=== PATIENT | male | born 1955 | race Caucasian/White ===

== ENCOUNTER 2016-09-14 09:17 | Inpatient (IN) | payer SELFPAY ==
[2016-09-14] MEDS ORDERED: IPRATROPIUM/ALBUTEROL 0.5-2.5 MG/3 ML AMPUL NEB ONE (10:37)
--- NOTE | 2016-09-14 10:37 | ER Document Report ---
ED Respiratory Problem - General Chief Complaint: Cough Stated Complaint: DIFFICULTY BREATHING Mode of Arrival: Ambulatory Information source: Patient Notes: Patient reports chronic cough due to COPD that worsened over the past 5 days. Patient does report multiple sick contacts recently. Patient denies any recent travel, history of DVT or PE. Patient denies any nausea or vomiting. Patient does report some mild chest discomfort that he attributes to the coughing. TRAVEL OUTSIDE OF THE [place] IN LAST 30 DAYS: No - HPI Patient complains to provider of: Cough, Short of breath Onset: Other - 5 days Duration: Continuous Quality of pain: Other - Occasional tightness Pain Level: 1 Context: Hx COPD. denies: Recent cardiac event, Recent foreign travel, Recent long distance trvl, Recent immobilization, Recent surgery, Smoker Chest pain/discomfort: Tightness Cough: Productive Sputum amount: Small Sputum color: Red (blood) Associated symptoms: Bloody cough, Chest pain/discomfort - With coughing, Cough , Fever - Possible, Short of breath - With ambulation. denies: Toothache, Wheezing Similar symptoms previously: No Recently seen / treated by doctor: No - Related Data Allergies/Adverse Reactions: No Known Allergies Allergy (Verified 09/14/16 09:23) Home Medications: Current Home Medications Albuterol Sulfate [Ventolin HFA MDI 18 GM] 2 puff IH Q4HP PRN 09/14/16 [History] Hydrochlorothiazide [Hydrodiuril 25 mg Tablet] 25 mg PO QAM 09/14/16 [History] Lisinopril [Prinivil 40 mg Tablet] 40 mg PO Q12 09/14/16 [History] Metoprolol Tartrate [Lopressor 50 mg Tablet] 50 mg PO Q12 09/14/16 [History] Past Medical History - General Information source: Patient - Social History Smoking Status: Former Smoker Chew tobacco use (# tins/day): No Frequency of alcohol use: None Drug Abuse: None Occupation: parking lot painting Lives with: Spouse/Significant other Family History: Reviewed & Not Pertinent Patient has suicidal ideation: No Patient has homicidal ideation: No - Past Medical History Cardiac Medical History: Reports: Hx Hypertension Pulmonary Medical History: Reports: Hx COPD Renal/ Medical History: Denies: Hx Peritoneal Dialysis Surgical Hx: Negative Review of Systems - Review of Systems Constitutional: Fever - Possible EENT: No symptoms reported Cardiovascular: Chest pain - With coughing, Dyspnea Respiratory: Cough, Hemoptysis, Short of breath, Sputum Gastrointestinal: No symptoms reported. denies: Nausea, Vomiting Genitourinary: No symptoms reported. denies: Dysuria Male Genitourinary: No symptoms reported Musculoskeletal: No symptoms reported. denies: Back pain Skin: No symptoms reported Hematologic/Lymphatic: No symptoms reported Neurological/Psychological: No symptoms reported Physical Exam - Vital signs Vitals: Temp Pulse Resp BP Pulse Ox 97.5 F 103 H 20 126/73 H 98 09/14/16 09:23 09/14/16 09:23 09/14/16 09:23 09/14/16 09:23 09/14/16 09:23 - General General appearance: Appears well, Alert In distress: None - HEENT Head: Normocephalic, Atraumatic Eyes: Normal Nasal: Normal Mouth/Lips: Normal Mucous membranes: Normal Neck: Normal, Supple - Respiratory Respiratory status: No respiratory distress Chest status: Pain with cough Breath sounds: Nonproductive cough, Rhonchi Chest palpation: Normal. No: Tender - Cardiovascular Rhythm: Tachycardia Heart sounds: S1 appreciated, S2 appreciated Murmur: No - Abdominal Inspection: Normal Distension: No distension Bowel sounds: Normal Tenderness: Nontender Organomegaly: No organomegaly - Back Back: Normal, Nontender. No: CVA tenderness, Vertebra tenderness - Extremities General upper extremity: Normal inspection, Normal strength General lower extremity: Normal inspection, Normal strength - Neurological Neuro grossly intact: Yes Cognition: Normal Scott Coma Scale Eye Opening: Spontaneous [place] Coma Scale Verbal: Oriented Scott Coma Scale Motor: Obeys Commands Scott Coma Scale Total: 15 - Psychological Associated symptoms: Normal affect, Normal mood - Skin Skin Temperature: Warm Skin Moisture: Dry Skin Color: Normal Course - Re-evaluation Re-evalutation: 09/14/16 10:[address] Monzon regarding patient presentation. Doesn't recommend getting a baseline set of labs to include cardiac enzymes. 09/14/16 11:[address] Monzon regarding patient's chest x-ray report, agrees with plan for CT imaging with IV contrast. 09/14/16 11:58 Patient updated on plan of care. 09/14/16 15:[address] Arauz who recommends consultation with pt's pcp, she would be willing to consult if pt is admitted. Dr. Arauz not overly concerned with patient's tachycardia, states that this is typically normal given the size of his lung mass and where is located in his chest. Consulted with dr Baig who is willing to admit pt to telemetry, Dr Arauz advised. 09/14/16 18:50 - Vital Signs Vital signs: Temp Pulse Resp BP Pulse Ox 98.4 F 120 H 26 H 132/75 H 97 09/14/16 18:45 09/14/16 18:45 09/14/16 18:45 09/14/16 18:45 09/14/16 18:45 - Laboratory Result Diagrams: 09/14/16 11:35 09/14/16 11:35 Laboratory results interpreted by me: 09/14/16 09/14/16 11:35 11:35 WBC 15.8 H RBC 4.21 L Hgb 9.2 L Hct 28.8 L MCV 68 L MCH 21.9 L MCHC 31.9 L RDW 17.3 H Plt Count 528 H Seg Neutrophils % 81.0 H Lymphocytes % 10.0 L Absolute Neutrophils 12.8 H Sodium 136.1 L Chloride 96 L BUN 29 H Calcium 11.8 H Alkaline Phosphatase 152 H Creatine Kinase < 20 L Labs- Entire Visit 09/14/16 09/14/16 09/14/16 11:35 11:35 11:35 WBC 15.8 H RBC 4.21 L Hgb 9.2 L Hct 28.8 L MCV 68 L MCH 21.9 L MCHC 31.9 L RDW 17.3 H Plt Count 528 H Seg Neutrophils % 81.0 H Lymphocytes % 10.0 L Monocytes % 7.4 Eosinophils % 1.1 Basophils % 0.5 Absolute Neutrophils 12.8 H Absolute Lymphocytes 1.6 Absolute Monocytes 1.2 Absolute Eosinophils 0.2 Absolute Basophils 0.1 Sodium 136.1 L Potassium 4.9 Chloride 96 L Carbon Dioxide 26 Anion Gap 14 BUN 29 H Creatinine 1.23 Est GFR ( Amer) > 60 Est GFR (Non-Af Amer) > 60 Glucose 107 Calcium 11.8 H Total Bilirubin 0.8 Direct Bilirubin 0.0 AST 28 ALT 35 Alkaline Phosphatase 152 H Creatine Kinase < 20 L CK-MB (CK-2) 0.61 Troponin I < 0.012 Total Protein 7.2 Albumin 4.0 Urine Color Urine Appearance Urine pH Ur Specific [place] Urine Protein Urine Glucose (UA) Urine Ketones Urine Blood Urine Nitrite Urine Bilirubin Urine Urobilinogen Ur Leukocyte Esterase Urine WBC (Auto) Urine RBC (Auto) Squamous Epi Cells Auto Urine Mucus (Auto) Urine Ascorbic Acid 09/14/16 13:58 WBC RBC Hgb Hct MCV MCH MCHC RDW Plt Count Seg Neutrophils % Lymphocytes % Monocytes % Eosinophils % Basophils % Absolute Neutrophils Absolute Lymphocytes Absolute Monocytes Absolute Eosinophils Absolute Basophils Sodium Potassium Chloride Carbon Dioxide Anion Gap BUN Creatinine Est GFR ( Amer) Est GFR (Non-Af Amer) Glucose Calcium Total Bilirubin Direct Bilirubin AST ALT Alkaline Phosphatase Creatine Kinase CK-MB (CK-2) Troponin I Total Protein Albumin Urine Color STRAW Urine Appearance CLEAR Urine pH 7.0 Ur Specific [place] 1.006 Urine Protein NEGATIVE Urine Glucose (UA) NEGATIVE Urine Ketones NEGATIVE Urine Blood NEGATIVE Urine Nitrite NEGATIVE Urine Bilirubin NEGATIVE Urine Urobilinogen NEGATIVE Ur Leukocyte Esterase NEGATIVE Urine WBC (Auto) 1 Urine RBC (Auto) 0 Squamous Epi Cells Auto <1 Urine Mucus (Auto) RARE Urine Ascorbic Acid NEGATIVE - Diagnostic Test Radiology reviewed: Reports reviewed Discharge - Discharge Clinical Impression: Tachycardia, Lung mass, Cough Dyspnea Qualifiers: Dyspnea type: dyspnea on exertion Qualified Code(s): R06.09 - Other forms of dyspnea Condition: Stable Disposition: ADMITTED INPATIENT Admitting Provider: [facility] Unit Admitted: Telemetry
[2016-09-14 11:55] LABS: ABSOLUTE BASOPHILS # (AUTO) 0.1 10^3/uL (0.0-0.2); ABSOLUTE EOSINOPHILS # (AUTO) 0.2 10^3/uL (0.0-0.6); ABSOLUTE LYMPHOCYTES (AUTO) 1.6 10^3/uL (0.5-4.7); ABSOLUTE MONOCYTES (AUTO) 1.2 10^3/uL (0.1-1.4); ABSOLUTE NEUT (AUTO) 12.8 10^3/uL (1.7-8.2); BASOPHILS % (AUTO) 0.5 % (0-2); EOSINOPHILS % (AUTO) 1.1 % (0-6); HEMATOCRIT 28.8 % (37.9-51.0); HEMOGLOBIN 9.2 g/dL (13.5-17.0); HGB HCT DIFFERENCE -1.2; MEAN CORPUSCULAR HEMOGLOBIN 21.9 pg (27.0-33.4); MEAN CORPUSCULAR HGB CONC 31.9 g/dL (32.0-36.0); MEAN CORPUSCULAR VOLUME 68 fl (80-97); MONOCYTES % (AUTO) 7.4 % (3-13); RED BLOOD COUNT 4.21 10^6/uL (4.35-5.55); RED CELL DISTRIBUTION WIDTH 17.3 % (11.5-14.0); WHITE BLOOD COUNT 15.8 10^3/uL (4.0-10.5)
[2016-09-14 12:21] LABS: ALANINE AMINOTRANSFERASE 35 U/L (21-72); ALKALINE PHOSPHATASE 152 U/L (38-126); ANION GAP 14 (5-19); ASPARTATE AMINO TRANSFERASE 28 U/L (17-59); BILIRUBIN,TOTAL 0.8 mg/dL (0.2-1.3); BLOOD UREA NITROGEN 29 mg/dL (7-20); CALCIUM 11.8 mg/dL (8.4-10.2); CARBON DIOXIDE 26 mmol/L (22-30); CHLORIDE 96 mmol/L (98-107); CREATININE RESULT 1.23 mg/dL (0.52-1.25); GLUCOSE 107 mg/dL (75-110); POTASSIUM 4.9 mmol/L (3.6-5.0); SODIUM 136.1 mmol/L (137-145); TOTAL PROTEIN 7.2 g/dL (6.3-8.2)
[2016-09-14 12:22] LABS: CREATINE KINASE < 20 U/L (55-170)
[2016-09-14 12:35] LABS: CREATINE KINASE MB 0.61 ng/mL (<4.55)
[2016-09-14 12:40] LABS: TROPONIN I < 0.012 ng/mL
[2016-09-14 14:18] LABS: APPEARANCE,URINE CLEAR; BILIRUBIN,URINE NEGATIVE (NEGATIVE); GLUCOSE, URINE NEGATIVE (NEGATIVE); KETONES,URINE NEGATIVE (NEGATIVE); LEUKOCYTE ESTERASE,URINE NEGATIVE (NEGATIVE); NITRITE,URINE NEGATIVE (NEGATIVE); PROTEIN,URINE NEGATIVE (NEGATIVE); URINE SPECIFIC GRAVITY 1.006; UROBILINOGEN,URINE NEGATIVE mg/dL (<2.0)
--- NOTE | 2016-09-14 16:04 | EKG REPORT ---
SEVERITY:- OTHERWISE NORMAL ECG - SINUS TACHYCARDIA : Confirmed by: New Lora 14-Sep-2016 16:03:41
[2016-09-14] MEDS ORDERED: ENOXAPARIN SODIUM INJ 40 MG/0.4 ML DISP.SYRIN SUBCUT ONE (19:30)
[2016-09-14 19:58] LABS: THYROID STIMULATING HORMONE 0.42 uIU/mL (0.47-4.68)
[2016-09-14] MEDS: LEVOFLOXACIN 750 MG/D5W RTU 750 MG/150 ML RTUPB IV SCH (20:34)
[2016-09-15 04:58] LABS: ABSOLUTE BASOPHILS # (AUTO) 0.1 10^3/uL (0.0-0.2); ABSOLUTE LYMPHOCYTES (AUTO) 1.6 10^3/uL (0.5-4.7); ABSOLUTE MONOCYTES (AUTO) 1.4 10^3/uL (0.1-1.4); ABSOLUTE NEUT (AUTO) 15.7 10^3/uL (1.7-8.2); BASOPHILS % (AUTO) 0.5 % (0-2); EOSINOPHILS % (AUTO) 0.2 % (0-6); HEMOGLOBIN 9.1 g/dL (13.5-17.0); HGB HCT DIFFERENCE -1.7; LYMPHOCYTES % (AUTO) 8.3 % (13-45); MEAN CORPUSCULAR HEMOGLOBIN 21.4 pg (27.0-33.4); MEAN CORPUSCULAR HGB CONC 31.3 g/dL (32.0-36.0); MEAN CORPUSCULAR VOLUME 68 fl (80-97); MONOCYTES % (AUTO) 7.5 % (3-13); RED BLOOD COUNT 4.24 10^6/uL (4.35-5.55); SEGMENTED NEUTROPHILS % (AUTO) 83.5 % (42-78); WHITE BLOOD COUNT 18.8 10^3/uL (4.0-10.5)
[2016-09-15 05:19] LABS: ANION GAP 15 (5-19); BLOOD UREA NITROGEN 34 mg/dL (7-20); CARBON DIOXIDE 24 mmol/L (22-30); CHLORIDE 96 mmol/L (98-107); CREATININE RESULT 1.43 mg/dL (0.52-1.25); GLUCOSE 97 mg/dL (75-110); SODIUM 135.3 mmol/L (137-145)
[2016-09-15 05:29] LABS: CALCIUM 12.2 mg/dL (8.4-10.2)
[2016-09-15 05:30] LABS: POTASSIUM 6.1 mmol/L (3.6-5.0)
[2016-09-15] MEDS ORDERED: SODIUM POLYSTYRENE SULFONATE 15 GM/60 ML ONE (05:45)
[2016-09-15] MEDS ORDERED: PAMIDRONATE DISODIUM INJ 30 MG/10 ML VIAL IV ONE ×2 (05:53→06:19)
[2016-09-15] MEDS ORDERED: NORMAL SALINE 1000 ML 1,000 ML IV PRN (06:12)
[2016-09-15] MEDS: SODIUM POLYSTYRENE SULFONATE 15 GM/60 ML PO SCH ×3 (06:33→13:42)
[2016-09-15] MEDS: ENOXAPARIN SODIUM INJ 40 MG/0.4 ML DISP.SYRIN SUBCUT SCH (08:04)
[2016-09-15 09:49] LABS: PROTHROMBIN TIME 15.9 SEC (11.4-15.4)
[2016-09-15 09:50] LABS: PARTIAL THROMBOPLASTIN TIME 43.1 SEC (23.5-35.8)
--- NOTE | 2016-09-15 11:10 | PDOC CONSULTATION ---
Consultation Consult Date: 09/15/16 Attending physician:: CHAIM MELVIN Consult reason:: Asked by PCP to see patient with lung mass and mediastinal adenopathy History of Present Illness Admission Date/PCP: 09/14/16 18:36 CHAIM MELVIN, Patient complains of: Shortness of breath, hemoptysis History of Present Illness: RAFAL DAMON JR is a 61 year old male with almost year-long history of increasing shortness of breath, about a month ago he began having intermittent hemoptysis, it went away for a while and then yesterday he had an episode of hemoptysis. His shortness of breath was worsening. His had some weight loss, but hard to say how much. He is not having any distinct chest pain. But upon presentation, he had a chest x-ray which showed a large left lung mass, this is followed by CT of the chest which indicated a large left upper lobe mass up to 9 cm, mediastinal adenopathy. I discussed his case with radiology, they felt like the left upper lobe mass was easily amenable to CT-guided biopsy, the mass was almost coming to the chest wall, but there didn't seem to be any bony destruction. Of note, however, today's potassium is high at 6.1, and calcium is high 12. He is receiving IV fluids as well as pamidronate. Past Medical History Cardiac Medical History: Reports: Hypertension Pulmonary Medical History: Reports: Chronic Obstructive Pulmonary Disease (COPD) Past Surgical History Past Surgical History: Reports: None Social History Lives with: Spouse/Significant other Smoking Status: Former Smoker Cigarettes Packs Per Day: 3 Number of Years Smokin Last Time Smoked: 11 yrs ago Frequency of Alcohol Use: None Hx Recreational Drug Use: No Hx Prescription Drug Abuse: No - Advance Directive Resuscitation Status: Full Code Family History Family History: Reviewed & Not Pertinent Parental Family History Reviewed: Yes Children Family History Reviewed: Yes Sibling(s) Family History Reviewed.: Yes Medication/Allergy Home Medications: Albuterol Sulfate [Ventolin HFA MDI 18 GM] 2 puff IH Q4HP PRN 09/14/16 Chlorpheniramine Maleate [Allergy Relief] 4 mg PO DAILYP PRN 09/14/16 Hydrochlorothiazide [Hydrodiuril 25 mg Tablet] 25 mg PO QAM 09/14/16 Lisinopril [Prinivil 40 mg Tablet] 40 mg PO Q12 09/14/16 Metoprolol Tartrate [Lopressor 50 mg Tablet] 50 mg PO Q12 09/14/16 Allergies/Adverse Reactions: No Known Allergies Allergy (Verified 09/14/16 09:23) Review of Systems Constitutional: PRESENT: fatigue, weakness Cardiovascular: PRESENT: dyspnea on exertion Respiratory: PRESENT: cough, hemoptysis Gastrointestinal: ABSENT: abdominal pain, constipation, diarrhea, hematemesis, hematochezia, nausea, vomiting Musculoskeletal: PRESENT: back pain Neurological: ABSENT: abnormal gait, abnormal speech, confusion, dizziness, focal weakness, syncope Physical Exam Vital Signs: Temp Pulse Resp BP Pulse Ox 97.5 F 131 H 19 109/66 98 09/15/16 07:22 09/15/16 07:22 09/15/16 07:22 09/15/16 07:22 09/15/16 07:22 Intake & Output 09/14/16 09/15/16 09/16/16 06:59 06:59 06:59 Intake Total 500 Output Total 125 Balance 375 Weight 60.4 kg General appearance: PRESENT: no acute distress, well-developed, well-nourished Head exam: PRESENT: atraumatic, normocephalic Eye exam: PRESENT: conjunctiva pink, EOMI, PERRLA. ABSENT: scleral icterus Ear exam: PRESENT: normal external ear exam Mouth exam: PRESENT: moist, tongue midline Neck exam: ABSENT: carotid bruit, JVD, lymphadenopathy, thyromegaly Respiratory exam: PRESENT: clear to auscultation yvette. ABSENT: rales, rhonchi, wheezes Cardiovascular exam: PRESENT: RRR. ABSENT: diastolic murmur, rubs, systolic murmur Pulses: PRESENT: normal dorsalis pedis pul Vascular exam: PRESENT: normal capillary refill GI/Abdominal exam: PRESENT: normal bowel sounds, soft. ABSENT: distended, guarding, mass, organolmegaly, rebound, tenderness Rectal exam: PRESENT: deferred Extremities exam: PRESENT: full ROM. ABSENT: calf tenderness, clubbing, pedal edema Neurological exam: PRESENT: alert, awake, oriented to person, oriented to place , oriented to time, oriented to situation, CN II-XII grossly intact. ABSENT: motor sensory deficit Psychiatric exam: PRESENT: appropriate affect, normal mood. ABSENT: homicidal ideation, suicidal ideation Skin exam: PRESENT: dry, intact, warm. ABSENT: cyanosis, rash Results Laboratory Results: 09/15/16 04:23 09/15/16 04:23 09/15/16 09/15/16 04:23 04:23 WBC 18.8 H RBC 4.24 L Hgb 9.1 L Hct 29.0 L MCV 68 L MCH 21.4 L MCHC 31.3 L RDW 17.0 H Plt Count 540 H Seg Neutrophils % 83.5 H Lymphocytes % 8.3 L Monocytes % 7.5 Eosinophils % 0.2 Basophils % 0.5 Absolute Neutrophils 15.7 H Absolute Lymphocytes 1.6 Absolute Monocytes 1.4 Absolute Eosinophils 0.0 Absolute Basophils 0.1 Sodium 135.3 L Potassium 6.1 H* D Chloride 96 L Carbon Dioxide 24 Anion Gap 15 BUN 34 H Creatinine 1.43 H Est GFR ( Amer) > 60 Est GFR (Non-Af Amer) 51 L Glucose 97 Calcium 12.2 H* Impressions: Chest X-Ray 09/14/16 10:36 IMPRESSION: DENSITY IN THE LEFT UPPER LOBE SECONDARY TO EITHER DENSE INFILTRATE OR LUNG MASS. RECOMMEND FOLLOWUP CT CHEST. Chest CT 09/14/16 12:33 IMPRESSION: Large cavitary mass in the left lung apex worrisome for primary tumor. No aggressive chest wall erosions or extension into the left axilla Mediastinal adenopathy Status: Image reviewed by me Assessment & Plan - Diagnosis (1) Lung mass Is this a current diagnosis for this admission?: YesPlan: Large left lung mass with mediastinal adenopathy, he does have a [id number] history of tobacco, quit about 11 years ago, overall picture concerning for a primary lung cancer with mediastinal spread, so present would at least be a stage III lung cancer. Today had a long discussion with patient as well as who is at bedside, spent greater than 70 minutes in discussion. We will plan for CT of the abdomen pelvis as well as bone scan and CT of the head tomorrow. He has fairly severe claustrophobia so as long as the CT of the head is negative, would not need to do MRI at present. This will help delineate the extent of disease and next steps of care. He will need CT-guided biopsy this is been ordered by PCP already, this will be done on Saturday most likely. - Time Time Spent: Greater than 70 Minutes Critical Time spent with patient: 35 or more minutes - Inpatient Certification Based on my medical assessment, after consideration of the patient's comorbidities, presenting symptoms, or acuity I expect that the services needed warrant INPATIENT care.: Yes I certify that my determination is in accordance with my understanding of Medicare's requirements for reasonable and necessary INPATIENT services [42 CFR 412.3e].: Yes Medical Necessity: Need for Surgery
[2016-09-15] MEDS: NORMAL SALINE 1000 ML 1,000 ML IV PRN (15:05)
--- NOTE | 2016-09-15 15:36 | PDOC H&P ---
History of Present Illness Admission Date/PCP: 09/14/16 18:36 CHAIM MELVIN, History of Present Illness: Patient 61-year-old male with history of chronic obstructive pulmonary disease, tobacco use, is still smoking about 11 years ago, he came to the emergency room because of progressive shortness of breath and occasional hemoptysis in the emergency room he was evaluated a chest x-ray was done that showed a mass in the left upper lobe. Subsequent CT chest with contrast was done it showed a thick-walled cavitary mass that measures 8.6 x 8.6 transversely and a 8.6 craniocaudadly. There is involvement of lymph nodes as well, he has also lost a lot of weight, I saw me last in the office last year from the last time I saw him to date.,He has lost about 20 pounds. This lesion is suspicious for primary lung cancer, he may need a CT-guided lung biopsy probably on Saturday, this could not be done this weekend. Past Medical History Cardiac Medical History: Reports: Hypertension Pulmonary Medical History: Reports: Chronic Obstructive Pulmonary Disease (COPD) Past Surgical History Past Surgical History: Reports: None Social History Lives with: Spouse/Significant other Smoking Status: Former Smoker Cigarettes Packs Per Day: 3 Number of Years Smokin Last Time Smoked: 11 yrs ago Frequency of Alcohol Use: None Hx Recreational Drug Use: No Hx Prescription Drug Abuse: No - Advance Directive Resuscitation Status: Full Code Family History Family History: Reviewed & Not Pertinent Parental Family History Reviewed: Yes Children Family History Reviewed: Yes Sibling(s) Family History Reviewed.: Yes Medication/Allergy Home Medications: Albuterol Sulfate [Ventolin HFA MDI 18 GM] 2 puff IH Q4HP PRN 09/14/16 Chlorpheniramine Maleate [Allergy Relief] 4 mg PO DAILYP PRN 09/14/16 Hydrochlorothiazide [Hydrodiuril 25 mg Tablet] 25 mg PO QAM 09/14/16 Lisinopril [Prinivil 40 mg Tablet] 40 mg PO Q12 09/14/16 Metoprolol Tartrate [Lopressor 50 mg Tablet] 50 mg PO Q12 09/14/16 Allergies/Adverse Reactions: No Known Allergies Allergy (Verified 09/14/16 09:23) Review of Systems Constitutional: PRESENT: fatigue, weight loss Respiratory: PRESENT: dyspnea, hemoptysis Gastrointestinal: PRESENT: nausea Genitourinary: ABSENT: as per HPI, difficulty urinating, dysuria, hematuria, nocturia, other Musculoskeletal: ABSENT: as per HPI, back pain, deformity, joint swelling, muscle weakness, other Neurological: ABSENT: as per HPI, abnormal gait, abnormal movements, abnormal speech, confusion, convulsions, dizziness, focal weakness, frequent falls, lack of coordination, memory loss, numbness, paresthesias, restless legs, syncope, tingling, tremor(s), vertigo, weakness, other Psychiatric: PRESENT: anxiety Physical Exam Vital Signs: Temp Pulse Resp BP Pulse Ox 97.7 F 123 H 19 103/63 97 09/15/16 11:34 09/15/16 14:00 09/15/16 11:34 09/15/16 11:34 09/15/16 11:34 Intake & Output 09/14/16 09/15/16 09/16/16 06:59 06:59 06:59 Intake Total 500 355 Output Total 125 25 Balance 375 330 Weight 60.4 kg General appearance: PRESENT: thin Head exam: PRESENT: atraumatic, normocephalic Eye exam: PRESENT: conjunctiva pink, EOMI, PERRLA Ear exam: PRESENT: normal external ear exam Neck exam: PRESENT: lymphadenopathy Respiratory exam: PRESENT: crackles Cardiovascular exam: PRESENT: RRR, +S1, +S2 GI/Abdominal exam: PRESENT: normal bowel sounds, soft Rectal exam: PRESENT: deferred Neurological exam: PRESENT: alert, awake, oriented to person, oriented to place , oriented to time, oriented to situation, CN II-XII grossly intact Psychiatric exam: PRESENT: appropriate affect, normal mood Skin exam: PRESENT: dry, intact, warm Results Laboratory Results: 09/15/16 04:23 09/15/16 04:23 09/15/16 09/15/16 04:23 04:23 WBC 18.8 H RBC 4.24 L Hgb 9.1 L Hct 29.0 L MCV 68 L MCH 21.4 L MCHC 31.3 L RDW 17.0 H Plt Count 540 H Seg Neutrophils % 83.5 H Lymphocytes % 8.3 L Monocytes % 7.5 Eosinophils % 0.2 Basophils % 0.5 Absolute Neutrophils 15.7 H Absolute Lymphocytes 1.6 Absolute Monocytes 1.4 Absolute Eosinophils 0.0 Absolute Basophils 0.1 Sodium 135.3 L Potassium 6.1 H* D Chloride 96 L Carbon Dioxide 24 Anion Gap 15 BUN 34 H Creatinine 1.43 H Est GFR ( Amer) > 60 Est GFR (Non-Af Amer) 51 L Glucose 97 Calcium 12.2 H* Impressions: Chest X-Ray 09/14/16 10:36 IMPRESSION: DENSITY IN THE LEFT UPPER LOBE SECONDARY TO EITHER DENSE INFILTRATE OR LUNG MASS. RECOMMEND FOLLOWUP CT CHEST. Chest CT 09/14/16 12:33 IMPRESSION: Large cavitary mass in the left lung apex worrisome for primary tumor. No aggressive chest wall erosions or extension into the left axilla Mediastinal adenopathy Assessment & Plan - Diagnosis (1) Cavitating mass in left upper lung lobe Is this a current diagnosis for this admission?: YesPlan: He has a cavitating mass in the left upper lobe, this is suspicious for primary lung cancer, there is associated leukocytosis, pneumonia cannot be, to rule out , he will be treated with IV antibiotic and we'll order CT-guided lung biopsy on Saturday. - Inpatient Certification Based on my medical assessment, after consideration of the patient's comorbidities, presenting symptoms, or acuity I expect that the services needed warrant INPATIENT care.: Yes I certify that my determination is in accordance with my understanding of Medicare's requirements for reasonable and necessary INPATIENT services [42 CFR 412.3e].: Yes Medical Necessity: Risk of Complication if Not Cared For in Hospital
--- NOTE | 2016-09-15 15:52 | PDOC PROGRESS REPORT ---
Subjective Progress Note for:: 09/15/16 Subjective:: Patient was admitted yesterday. He has a large mass in his left upper lobe, this morning the calcium was over 12 and there is also associated hyperkalemia Physical Exam Vital Signs: Temp Pulse Resp BP Pulse Ox 97.8 F 121 H 19 109/72 99 09/15/16 15:26 09/15/16 15:26 09/15/16 15:26 09/15/16 15:26 09/15/16 15:26 Intake & Output 09/14/16 09/15/16 09/16/16 06:59 06:59 06:59 Intake Total 500 355 Output Total 125 25 Balance 375 330 Weight 60.4 kg General appearance: PRESENT: no acute distress Eye exam: PRESENT: PERRLA Respiratory exam: PRESENT: crackles Cardiovascular exam: PRESENT: +S1, +S2 GI/Abdominal exam: PRESENT: soft Results Laboratory Results: 09/15/16 04:23 09/15/16 04:23 09/15/16 09/15/16 04:23 04:23 WBC 18.8 H RBC 4.24 L Hgb 9.1 L Hct 29.0 L MCV 68 L MCH 21.4 L MCHC 31.3 L RDW 17.0 H Plt Count 540 H Seg Neutrophils % 83.5 H Lymphocytes % 8.3 L Monocytes % 7.5 Eosinophils % 0.2 Basophils % 0.5 Absolute Neutrophils 15.7 H Absolute Lymphocytes 1.6 Absolute Monocytes 1.4 Absolute Eosinophils 0.0 Absolute Basophils 0.1 Sodium 135.3 L Potassium 6.1 H* D Chloride 96 L Carbon Dioxide 24 Anion Gap 15 BUN 34 H Creatinine 1.43 H Est GFR ( Amer) > 60 Est GFR (Non-Af Amer) 51 L Glucose 97 Calcium 12.2 H* Impressions: Chest X-Ray 09/14/16 10:36 IMPRESSION: DENSITY IN THE LEFT UPPER LOBE SECONDARY TO EITHER DENSE INFILTRATE OR LUNG MASS. RECOMMEND FOLLOWUP CT CHEST. Chest CT 09/14/16 12:33 IMPRESSION: Large cavitary mass in the left lung apex worrisome for primary tumor. No aggressive chest wall erosions or extension into the left axilla Mediastinal adenopathy Assessment & Plan - Diagnosis (1) Cavitating mass in left upper lung lobe Is this a current diagnosis for this admission?: YesPlan: He is scheduled for CT-guided biopsy on Saturday (2) Hypercalcemia of malignancy Is this a current diagnosis for this admission?: YesPlan: The serum intact PTH is ordered, he has hypercalcemia of malignancy, he was given a dose of pamidronate this morning and also already started on IV infusion with normal saline (3) Hyperkalemia Is this a current diagnosis for this admission?: YesPlan: The hyperkalemia is most likely from transcellular shift of potassium, Kayexalate is ordered for the patient
[2016-09-15 16:34] LABS: ANION GAP 10 (5-19); BLOOD UREA NITROGEN 26 mg/dL (7-20); CALCIUM 11.4 mg/dL (8.4-10.2); CARBON DIOXIDE 28 mmol/L (22-30); CHLORIDE 99 mmol/L (98-107); CREATININE RESULT 1.09 mg/dL (0.52-1.25); GLUCOSE 121 mg/dL (75-110)
[2016-09-15 16:42] LABS: POTASSIUM 4.1 mmol/L (3.6-5.0)
[2016-09-15] MEDS: LEVOFLOXACIN 750 MG/D5W RTU 750 MG/150 ML RTUPB IV SCH (20:37)
[2016-09-15] MEDS ORDERED: LANSOPRAZOLE 30 MG TAB.RAP.DR PO ONE (23:30)
[2016-09-16] MEDS: NORMAL SALINE 1000 ML 1,000 ML IV PRN ×2 (04:30→18:42)
[2016-09-16 05:17] LABS: ABSOLUTE BASOPHILS # (AUTO) 0.1 10^3/uL (0.0-0.2); ABSOLUTE EOSINOPHILS # (AUTO) 0.1 10^3/uL (0.0-0.6); ABSOLUTE LYMPHOCYTES (AUTO) 1.3 10^3/uL (0.5-4.7); ABSOLUTE MONOCYTES (AUTO) 1.5 10^3/uL (0.1-1.4); BASOPHILS % (AUTO) 0.3 % (0-2); EOSINOPHILS % (AUTO) 0.5 % (0-6); HEMATOCRIT 27.3 % (37.9-51.0); HEMOGLOBIN 8.5 g/dL (13.5-17.0); HGB HCT DIFFERENCE -1.8; LYMPHOCYTES % (AUTO) 7.1 % (13-45); MEAN CORPUSCULAR HEMOGLOBIN 21.4 pg (27.0-33.4); MEAN CORPUSCULAR VOLUME 69 fl (80-97); MONOCYTES % (AUTO) 8.3 % (3-13); RED BLOOD COUNT 3.95 10^6/uL (4.35-5.55); RED CELL DISTRIBUTION WIDTH 17.4 % (11.5-14.0); SEGMENTED NEUTROPHILS % (AUTO) 83.8 % (42-78); WHITE BLOOD COUNT 17.9 10^3/uL (4.0-10.5)
[2016-09-16 05:32] LABS: PROTHROMBIN TIME 14.7 SEC (11.4-15.4)
[2016-09-16 05:33] LABS: PARTIAL THROMBOPLASTIN TIME 38.6 SEC (23.5-35.8)
[2016-09-16 05:48] LABS: ANION GAP 11 (5-19); BLOOD UREA NITROGEN 23 mg/dL (7-20); CALCIUM 10.4 mg/dL (8.4-10.2); CARBON DIOXIDE 25 mmol/L (22-30); CHLORIDE 100 mmol/L (98-107); CREATININE RESULT 1.02 mg/dL (0.52-1.25); GLUCOSE 94 mg/dL (75-110); POTASSIUM 4.7 mmol/L (3.6-5.0); SODIUM 136.2 mmol/L (137-145)
[2016-09-16] MEDS: ENOXAPARIN SODIUM INJ 40 MG/0.4 ML DISP.SYRIN SUBCUT SCH (08:19)
[2016-09-16] MEDS ORDERED: ALPRAZOLAM 0.25 MG TABLET PO PRN (15:08)
--- NOTE | 2016-09-16 15:18 | PDOC PROGRESS REPORT ---
Subjective Progress Note for:: 09/16/16 Subjective:: Patient was seen by the bedside, family was in the room, I had a long discussion with patient and the family about prognosis and plan of care. He is scheduled for CT-guided lung biopsy tomorrow, he had CT scan of the abdomen and pelvis with IV contrast as part of the metastatic workup it showed diffuse cecal wall thickening luminal narrowing.. Patient is very anxious, which is expected , he also complained of acid reflux symptom and he had Prevacid, he said the Prevacid was effective in controlling his symptoms. Physical Exam Vital Signs: Temp Pulse Resp BP Pulse Ox 98.2 F 134 H 24 H 122/77 98 09/16/16 11:10 09/16/16 11:10 09/16/16 11:10 09/16/16 11:10 09/16/16 11:10 Intake & Output 09/15/16 09/16/16 09/17/16 06:59 06:59 06:59 Intake Total 500 3590 240 Output Total 125 825 700 Balance 375 2765 -460 Weight 60.4 kg 63.5 kg General appearance: PRESENT: no acute distress Eye exam: PRESENT: PERRLA Respiratory exam: PRESENT: rhonchi Cardiovascular exam: PRESENT: +S1, +S2 Results Laboratory Results: 09/16/16 04:06 09/16/16 04:06 09/15/16 09/16/16 09/16/16 16:11 04:06 04:06 WBC 17.9 H RBC 3.95 L Hgb 8.5 L Hct 27.3 L MCV 69 L MCH 21.4 L MCHC 31.0 L RDW 17.4 H Plt Count 434 Seg Neutrophils % 83.8 H Lymphocytes % 7.1 L Monocytes % 8.3 Eosinophils % 0.5 Basophils % 0.3 Absolute Neutrophils 15.0 H Absolute Lymphocytes 1.3 Absolute Monocytes 1.5 H Absolute Eosinophils 0.1 Absolute Basophils 0.1 Sodium 137.0 136.2 L Potassium 4.1 D 4.7 Chloride 99 100 Carbon Dioxide 28 25 Anion Gap 10 11 BUN 26 H 23 H Creatinine 1.09 1.02 Est GFR ( Amer) > 60 > 60 Est GFR (Non-Af Amer) > 60 > 60 Glucose 121 H 94 Calcium 11.4 H 10.4 H Impressions: Chest X-Ray 09/14/16 10:36 IMPRESSION: DENSITY IN THE LEFT UPPER LOBE SECONDARY TO EITHER DENSE INFILTRATE OR LUNG MASS. RECOMMEND FOLLOWUP CT CHEST. Chest CT 09/14/16 12:33 IMPRESSION: Large cavitary mass in the left lung apex worrisome for primary tumor. No aggressive chest wall erosions or extension into the left axilla Mediastinal adenopathy Abdomen/Pelvis CT 09/16/16 06:00 IMPRESSION: Abnormal wall thickening and luminal narrowing of the cecum proximal to and at the level of the ileocecal valve. Differential is colitis versus tumor. Assessment & Plan - Diagnosis (1) Cavitating mass in left upper lung lobe Is this a current diagnosis for this admission?: Yes (2) Hypercalcemia of malignancy Is this a current diagnosis for this admission?: Yes (3) Hyperkalemia Is this a current diagnosis for this admission?: Yes (4) Anxiety Is this a current diagnosis for this admission?: YesPlan: He will be started on alprazolam 0.25 mg 1 tablet 3 times a day (5) Acid reflux disease Qualifiers: Esophagitis presence: esophagitis presence not specified Qualified Code(s): K21.9 - Gastro-esophageal reflux disease without esophagitis Is this a current diagnosis for this admission?: Yes
[2016-09-16] MEDS ORDERED: LANSOPRAZOLE 30 MG TAB.RAP.DR PO ONE (15:45)
[2016-09-16] MEDS: LEVOFLOXACIN 750 MG/D5W RTU 750 MG/150 ML RTUPB IV SCH (19:36)
[2016-09-17 04:43] LABS: ABSOLUTE EOSINOPHILS # (AUTO) 0.2 10^3/uL (0.0-0.6); ABSOLUTE LYMPHOCYTES (AUTO) 1.1 10^3/uL (0.5-4.7); ABSOLUTE MONOCYTES (AUTO) 1.3 10^3/uL (0.1-1.4); ABSOLUTE NEUT (AUTO) 12.2 10^3/uL (1.7-8.2); BASOPHILS % (AUTO) 0.3 % (0-2); EOSINOPHILS % (AUTO) 1.1 % (0-6); HEMATOCRIT 25.7 % (37.9-51.0); LYMPHOCYTES % (AUTO) 7.2 % (13-45); MEAN CORPUSCULAR HEMOGLOBIN 21.4 pg (27.0-33.4); MEAN CORPUSCULAR HGB CONC 30.8 g/dL (32.0-36.0); MEAN CORPUSCULAR VOLUME 70 fl (80-97); RED BLOOD COUNT 3.69 10^6/uL (4.35-5.55); RED CELL DISTRIBUTION WIDTH 17.4 % (11.5-14.0); SEGMENTED NEUTROPHILS % (AUTO) 82.4 % (42-78); WHITE BLOOD COUNT 14.8 10^3/uL (4.0-10.5)
[2016-09-17 04:48] LABS: HEMOGLOBIN 7.9 g/dL (13.5-17.0)
[2016-09-17 04:59] LABS: ANION GAP 10 (5-19); BLOOD UREA NITROGEN 16 mg/dL (7-20); CALCIUM 9.2 mg/dL (8.4-10.2); CARBON DIOXIDE 26 mmol/L (22-30); CHLORIDE 101 mmol/L (98-107); CREATININE RESULT 0.99 mg/dL (0.52-1.25); GLUCOSE 103 mg/dL (75-110); POTASSIUM 4.1 mmol/L (3.6-5.0)
[2016-09-17 05:00] LABS: PROTHROMBIN TIME 15.6 SEC (11.4-15.4)
[2016-09-17 05:01] LABS: PARTIAL THROMBOPLASTIN TIME 38.7 SEC (23.5-35.8)
[2016-09-17] MEDS: LANSOPRAZOLE 30 MG TAB.RAP.DR PO SCH (05:08)
[2016-09-17] MEDS: NORMAL SALINE 1000 ML 1,000 ML IV PRN ×2 (05:08→16:25)
[2016-09-17] MEDS: ENOXAPARIN SODIUM INJ 40 MG/0.4 ML DISP.SYRIN SUBCUT SCH (07:41)
--- NOTE | 2016-09-17 08:54 | PDOC PROGRESS REPORT ---
Subjective Progress Note for:: 09/17/16 Subjective:: Patient had a generally uneventful Saturday, no new complaints Physical Exam Vital Signs: Temp Pulse Resp BP Pulse Ox 98.4 F 138 H 20 114/61 91 L 09/17/16 07:54 09/17/16 08:19 09/17/16 07:54 09/17/16 07:54 09/17/16 08:19 Intake & Output 09/16/16 09/17/16 09/18/16 06:59 06:59 06:59 Intake Total 3590 3717 Output Total 825 1045 Balance 2765 1242 Weight 63.5 kg 63.7 kg General appearance: PRESENT: no acute distress, well-developed, well-nourished Head exam: PRESENT: atraumatic, normocephalic Eye exam: PRESENT: conjunctiva pink, EOMI, PERRLA. ABSENT: scleral icterus Ear exam: PRESENT: normal external ear exam Mouth exam: PRESENT: moist, tongue midline Neck exam: ABSENT: carotid bruit, JVD, lymphadenopathy, thyromegaly Respiratory exam: PRESENT: clear to auscultation yvette. ABSENT: rales, rhonchi, wheezes Cardiovascular exam: PRESENT: RRR. ABSENT: diastolic murmur, rubs, systolic murmur Pulses: PRESENT: normal dorsalis pedis pul Vascular exam: PRESENT: normal capillary refill GI/Abdominal exam: PRESENT: normal bowel sounds, soft. ABSENT: distended, guarding, mass, organolmegaly, rebound, tenderness Rectal exam: PRESENT: deferred Extremities exam: PRESENT: full ROM. ABSENT: calf tenderness, clubbing, pedal edema Neurological exam: PRESENT: alert, awake, oriented to person, oriented to place , oriented to time, oriented to situation, CN II-XII grossly intact. ABSENT: motor sensory deficit Psychiatric exam: PRESENT: appropriate affect, normal mood. ABSENT: homicidal ideation, suicidal ideation Skin exam: PRESENT: dry, intact, warm. ABSENT: cyanosis, rash Results Laboratory Results: 09/17/16 04:10 09/17/16 04:10 09/17/16 09/17/16 04:10 04:10 WBC 14.8 H RBC 3.69 L Hgb 7.9 L Hct 25.7 L MCV 70 L MCH 21.4 L MCHC 30.8 L RDW 17.4 H Plt Count 351 Seg Neutrophils % 82.4 H Lymphocytes % 7.2 L Monocytes % 9.0 Eosinophils % 1.1 Basophils % 0.3 Absolute Neutrophils 12.2 H Absolute Lymphocytes 1.1 Absolute Monocytes 1.3 Absolute Eosinophils 0.2 Absolute Basophils 0.0 Sodium 137.0 Potassium 4.1 Chloride 101 Carbon Dioxide 26 Anion Gap 10 BUN 16 Creatinine 0.99 Est GFR ( Amer) > 60 Est GFR (Non-Af Amer) > 60 Glucose 103 Calcium 9.2 Impressions: Chest X-Ray 09/14/16 10:36 IMPRESSION: DENSITY IN THE LEFT UPPER LOBE SECONDARY TO EITHER DENSE INFILTRATE OR LUNG MASS. RECOMMEND FOLLOWUP CT CHEST. Chest CT 09/14/16 12:33 IMPRESSION: Large cavitary mass in the left lung apex worrisome for primary tumor. No aggressive chest wall erosions or extension into the left axilla Mediastinal adenopathy Head CT 09/16/16 00:00 IMPRESSION: NORMAL BRAIN CT WITHOUT AND WITH CONTRAST. Abdomen/Pelvis CT 09/16/16 06:00 IMPRESSION: Abnormal wall thickening and luminal narrowing of the cecum proximal to and at the level of the ileocecal valve. Differential is colitis versus tumor. Status: Image reviewed by me Assessment & Plan - Diagnosis (1) Lung mass Is this a current diagnosis for this admission?: YesPlan: Overall picture concerning for probably a stage III lung cancer, CT of the abdomen pelvis was unremarkable except for cecal thickening. He does have anemia, so today I sent iron studies and B12 levels, but something like a colon cancer may be possible, I discussed his case with Dr. Rashid of gastroenterology , who will see the patient today and prep him for colonoscopy tomorrow. I believe this will be necessary. (2) Anemia, unspecified Qualifiers: Anemia type: other cause Other causes of anemia: other cause, not classified Qualified Code(s): D64.89 - Other specified anemias Is this a current diagnosis for this admission?: YesPlan: Unknown cause, awaiting iron studies but something like blood losses possible. Hold on transfusion for now. But probably patient will benefit from transfusion prior to discharge. - Time Time Spent with patient: 35 or more minutes Critical Time spent with patient: 35 or more minutes - Inpatient Certification Based on my medical assessment, after consideration of the patient's comorbidities, presenting symptoms, or acuity I expect that the services needed warrant INPATIENT care.: Yes I certify that my determination is in accordance with my understanding of Medicare's requirements for reasonable and necessary INPATIENT services [42 CFR 412.3e].: Yes Medical Necessity: Need for Surgery
[2016-09-17 10:33] LABS: FOLATE 5.68 ng/mL (>2.76)
[2016-09-17] MEDS: MIDAZOLAM 2 MG/2 ML INJ ONE (12:29)
[2016-09-17] MEDS: FENTANYL CITRATE INJ/PF 100 MCG/2 ML AMPUL ONE (12:29)
[2016-09-17] MEDS ORDERED: DIPHENHYDRAMINE HCL 25 MG CAPSULE PO PRN (14:44)
[2016-09-17] MEDS ORDERED: ACETAMINOPHEN 325 MG TABLET PO PRN (14:45)
[2016-09-17] MEDS ORDERED: FUROSEMIDE INJ/PF 20 MG/2 ML SDV IV PRN (14:45)
--- NOTE | 2016-09-17 15:01 | PDOC CONSULTATION ---
Consultation Consult Date: 09/17/16 Attending physician:: KATYA PERALTA Consult reason:: I was consulted by Dr. Faustin. Patient admitted with abnormal CT scan. He was noted to have some cecal wall thickening. He is currently being treated for lung cancer. He has not had a colonoscopy. History of Present Illness Admission Date/PCP: 09/14/16 18:36 CHAIM MELVIN, History of Present Illness: Patient was admitted over this weekend. Patient does smoke and presents with shortness of breath. He was worked up in the emergency room. He has a mass in the lungs. He is being followed by oncology. However he is not had a colonoscopy he was noted to have some cecal thickening on CT scan. He personally denies any blood in the stools. He states that there is no change in bowel habits He denies any family history of colorectal cancer. I was contacted by his oncologist. Patient is getting a CT biopsy done today. However the request is for colonoscopy to make sure that the findings noted on CT scan is not due to a primary mass in the area. Patient states that he's been losing weight. He denies any nausea vomiting. He does not appear to have any symptoms of obstruction. Past Medical History Cardiac Medical History: Reports: Hypertension Pulmonary Medical History: Reports: Chronic Obstructive Pulmonary Disease (COPD) Past Surgical History Past Surgical History: Reports: None Social History Lives with: Spouse/Significant other Smoking Status: Former Smoker Cigarettes Packs Per Day: 3 Number of Years Smokin Last Time Smoked: 11 yrs ago Frequency of Alcohol Use: None Hx Recreational Drug Use: No Hx Prescription Drug Abuse: No - Advance Directive Resuscitation Status: Full Code Family History Family History: Reviewed & Not Pertinent Parental Family History Reviewed: Yes Children Family History Reviewed: Unknown Sibling(s) Family History Reviewed.: Unknown Medication/Allergy Home Medications: Albuterol Sulfate [Ventolin HFA MDI 18 GM] 2 puff IH Q4HP PRN 09/14/16 Chlorpheniramine Maleate [Allergy Relief] 4 mg PO DAILYP PRN 09/14/16 Hydrochlorothiazide [Hydrodiuril 25 mg Tablet] 25 mg PO QAM 09/14/16 Lisinopril [Prinivil 40 mg Tablet] 40 mg PO Q12 09/14/16 Metoprolol Tartrate [Lopressor 50 mg Tablet] 50 mg PO Q12 09/14/16 Allergies/Adverse Reactions: No Known Allergies Allergy (Verified 09/14/16 09:23) Review of Systems Constitutional: ABSENT: fever(s), headache(s), night sweats, weakness Eyes: ABSENT: visual disturbances Ears: ABSENT: hearing changes Nose, Mouth, and Throat: ABSENT: mouth pain, sore throat Cardiovascular: PRESENT: dyspnea on exertion. ABSENT: orthropnea, palpitations Respiratory: PRESENT: dyspnea. ABSENT: hemoptysis Gastrointestinal: ABSENT: constipation, diarrhea, dysphagia, hematemesis, hematochezia, melena Genitourinary: ABSENT: dysuria, hematuria Musculoskeletal: ABSENT: deformity Integumentary: ABSENT: lesions, pruritus Neurological: ABSENT: focal weakness, paresthesias, syncope, vertigo Endocrine: ABSENT: polydipsia, polyphagia, polyuria Hematologic/Lymphatic: ABSENT: easy bruising Physical Exam Vital Signs: Temp Pulse Resp BP Pulse Ox 98.4 F 117 H 20 114/61 92 09/17/16 10:01 09/17/16 10:01 09/17/16 10:01 09/17/16 10:01 09/17/16 10:01 Intake & Output 09/16/16 09/17/16 09/18/16 06:59 06:59 06:59 Intake Total 3590 3717 Output Total 825 2475 Balance 2765 1242 Weight 63.5 kg 63.7 kg General appearance: PRESENT: no acute distress, thin Head exam: PRESENT: atraumatic, normocephalic Eye exam: PRESENT: EOMI, PERRLA. ABSENT: nystagmus, periorbital swelling, scleral icterus Mouth exam: PRESENT: moist Throat exam: ABSENT: tonsillar exudate Neck exam: ABSENT: meningismus, tenderness, thyromegaly Respiratory exam: PRESENT: decreased breath sounds. ABSENT: chest wall tenderness, unlabored Cardiovascular exam: PRESENT: RRR, +S1, +S2. ABSENT: clicks, rubs GI/Abdominal exam: PRESENT: soft. ABSENT: rebound, rigid, tenderness Gentrourinary exam: ABSENT: urethral discharge Extremities exam: ABSENT: joint swelling Musculoskeletal exam: PRESENT: normal inspection Neurological exam: PRESENT: alert, awake, oriented to time, oriented to situation, reflexes normal, CN II-XII grossly intact Psychiatric exam: PRESENT: appropriate affect Skin exam: PRESENT: normal color. ABSENT: mottled, pallor, petechiae, urticaria , vesicles Results Laboratory Results: 09/17/16 04:10 09/17/16 04:10 09/17/16 09/17/16 09/17/16 04:10 04:10 04:10 WBC 14.8 H RBC 3.69 L Hgb 7.9 L Hct 25.7 L MCV 70 L MCH 21.4 L MCHC 30.8 L RDW 17.4 H Plt Count 351 Seg Neutrophils % 82.4 H Lymphocytes % 7.2 L Monocytes % 9.0 Eosinophils % 1.1 Basophils % 0.3 Absolute Neutrophils 12.2 H Absolute Lymphocytes 1.1 Absolute Monocytes 1.3 Absolute Eosinophils 0.2 Absolute Basophils 0.0 Retic Count (auto) 2.60 Absolute Retic 0.096 Sodium 137.0 Potassium 4.1 Chloride 101 Carbon Dioxide 26 Anion Gap 10 BUN 16 Creatinine 0.99 Est GFR ( Amer) > 60 Est GFR (Non-Af Amer) > 60 Glucose 103 Calcium 9.2 Iron TIBC % Saturation Ferritin Vitamin B12 Folate 09/17/16 04:10 WBC RBC Hgb Hct MCV MCH MCHC RDW Plt Count Seg Neutrophils % Lymphocytes % Monocytes % Eosinophils % Basophils % Absolute Neutrophils Absolute Lymphocytes Absolute Monocytes Absolute Eosinophils Absolute Basophils Retic Count (auto) Absolute Retic Sodium Potassium Chloride Carbon Dioxide Anion Gap BUN Creatinine Est GFR ( Amer) Est GFR (Non-Af Amer) Glucose Calcium Iron < 10 L TIBC 213 L % Saturation UNABLE TO CALCULATE Ferritin 274.00 Vitamin B12 276.0 Folate 5.68 Impressions: Chest CT 09/14/16 12:33 IMPRESSION: Large cavitary mass in the left lung apex worrisome for primary tumor. No aggressive chest wall erosions or extension into the left axilla Mediastinal adenopathy Head CT 09/16/16 00:00 IMPRESSION: NORMAL BRAIN CT WITHOUT AND WITH CONTRAST. Abdomen/Pelvis CT 09/16/16 06:00 IMPRESSION: Abnormal wall thickening and luminal narrowing of the cecum proximal to and at the level of the ileocecal valve. Differential is colitis versus tumor. Assessment & Plan - Diagnosis (1) Abnormal CT scan, colon Plan: noted to have cecal thickening Oncology requesting a colonoscopy however if colon cancer, it would be metastatic and would show more adenoma type cells however if CT scan shows squamous, then colon source would be less likely however patient wants to proceed Risks, benefits and alternatives are discussed with the patient in detail further recommendations to follow (2) Acid reflux disease Qualifiers: Esophagitis presence: esophagitis presence not specified Qualified Code(s): K21.9 - Gastro-esophageal reflux disease without esophagitis Is this a current diagnosis for this admission?: YesPlan: Continue PPI malignancy likely related to Tob history however EGD would have to be considered as well if CT biopsy is non diagnostic (3) Anemia, unspecified Qualifiers: Anemia type: other cause Other causes of anemia: other cause, not classified Qualified Code(s): D64.89 - Other specified anemias Is this a current diagnosis for this admission?: YesPlan: multifactorial will continue to follow followed by Oncology will schedule patient for colonoscopy , further recommendations to follow - Time Time Spent: 50 to 70 Minutes
[2016-09-17] MEDS ORDERED: PEG 3350/NA SULF,BICARB,CL/KCL 4000 ML PO PRN (15:02)
--- NOTE | 2016-09-17 18:37 | PDOC PROGRESS REPORT ---
Subjective Progress Note for:: 09/17/16 Subjective:: Patient was seen by the bedside, he had a CT-guided lung biopsy today and is scheduled for colonoscopy Physical Exam Vital Signs: Temp Pulse Resp BP Pulse Ox 98.5 F 136 H 18 141/73 H 93 09/17/16 15:41 09/17/16 15:41 09/17/16 15:41 09/17/16 15:41 09/17/16 15:41 Intake & Output 09/16/16 09/17/16 09/18/16 06:59 06:59 06:59 Intake Total 3590 3717 1008 Output Total 825 2475 Balance 2765 1242 1008 Weight 63.5 kg 63.7 kg General appearance: PRESENT: no acute distress Eye exam: PRESENT: PERRLA Respiratory exam: PRESENT: rhonchi Cardiovascular exam: PRESENT: +S1, +S2 Neurological exam: PRESENT: alert Results Laboratory Results: 09/17/16 04:10 09/17/16 04:10 09/17/16 09/17/16 09/17/16 04:10 04:10 04:10 WBC 14.8 H RBC 3.69 L Hgb 7.9 L Hct 25.7 L MCV 70 L MCH 21.4 L MCHC 30.8 L RDW 17.4 H Plt Count 351 Seg Neutrophils % 82.4 H Lymphocytes % 7.2 L Monocytes % 9.0 Eosinophils % 1.1 Basophils % 0.3 Absolute Neutrophils 12.2 H Absolute Lymphocytes 1.1 Absolute Monocytes 1.3 Absolute Eosinophils 0.2 Absolute Basophils 0.0 Retic Count (auto) 2.60 Absolute Retic 0.096 Sodium 137.0 Potassium 4.1 Chloride 101 Carbon Dioxide 26 Anion Gap 10 BUN 16 Creatinine 0.99 Est GFR ( Amer) > 60 Est GFR (Non-Af Amer) > 60 Glucose 103 Calcium 9.2 Iron TIBC % Saturation Ferritin Vitamin B12 Folate Blood Type Antibody Screen 09/17/16 09/17/16 04:10 16:15 WBC RBC Hgb Hct MCV MCH MCHC RDW Plt Count Seg Neutrophils % Lymphocytes % Monocytes % Eosinophils % Basophils % Absolute Neutrophils Absolute Lymphocytes Absolute Monocytes Absolute Eosinophils Absolute Basophils Retic Count (auto) Absolute Retic Sodium Potassium Chloride Carbon Dioxide Anion Gap BUN Creatinine Est GFR ( Amer) Est GFR (Non-Af Amer) Glucose Calcium Iron < 10 L TIBC 213 L % Saturation UNABLE TO CALCULATE Ferritin 274.00 Vitamin B12 276.0 Folate 5.68 Blood Type O POSITIVE Antibody Screen NEGATIVE Impressions: Chest CT 09/14/16 12:33 IMPRESSION: Large cavitary mass in the left lung apex worrisome for primary tumor. No aggressive chest wall erosions or extension into the left axilla Mediastinal adenopathy Head CT 09/16/16 00:00 IMPRESSION: NORMAL BRAIN CT WITHOUT AND WITH CONTRAST. Abdomen/Pelvis CT 09/16/16 06:00 IMPRESSION: Abnormal wall thickening and luminal narrowing of the cecum proximal to and at the level of the ileocecal valve. Differential is colitis versus tumor. Body Scan Nuclear Medicine 09/16/16 06:00 IMPRESSION: NORMAL BONE SCAN. Chest X-Ray 09/17/16 00:00 IMPRESSION: No pneumothorax. Guidance Needle Placement CT 09/17/16 00:00 IMPRESSION: CT GUIDED BIOPSY OF THE lung PERFORMED WITHOUT IMMEDIATE COMPLICATION. PATHOLOGY PENDING. Lung Biopsy CT 09/17/16 07:45 IMPRESSION: CT GUIDED BIOPSY OF THE lung PERFORMED WITHOUT IMMEDIATE COMPLICATION. PATHOLOGY PENDING. Assessment & Plan - Diagnosis (1) Cavitating mass in left upper lung lobe Is this a current diagnosis for this admission?: Yes (2) Hypercalcemia of malignancy Is this a current diagnosis for this admission?: Yes (3) Hyperkalemia Is this a current diagnosis for this admission?: Yes (4) Anxiety Is this a current diagnosis for this admission?: Yes (5) Acid reflux disease Qualifiers: Esophagitis presence: esophagitis presence not specified Qualified Code(s): K21.9 - Gastro-esophageal reflux disease without esophagitis Is this a current diagnosis for this admission?: Yes
[2016-09-17] MEDS: LEVOFLOXACIN 750 MG/D5W RTU 750 MG/150 ML RTUPB IV SCH (20:29)
[2016-09-18] MEDS ORDERED: FUROSEMIDE INJ/PF 20 MG/2 ML SDV IV PRN (02:16)
[2016-09-18] MEDS: LANSOPRAZOLE 30 MG TAB.RAP.DR PO SCH (05:05)
[2016-09-18 07:39] LABS: ABSOLUTE BASOPHILS # (AUTO) 0.1 10^3/uL (0.0-0.2); ABSOLUTE EOSINOPHILS # (AUTO) 0.1 10^3/uL (0.0-0.6); ABSOLUTE LYMPHOCYTES (AUTO) 1.1 10^3/uL (0.5-4.7); ABSOLUTE MONOCYTES (AUTO) 1.3 10^3/uL (0.1-1.4); ABSOLUTE NEUT (AUTO) 12.8 10^3/uL (1.7-8.2); BASOPHILS % (AUTO) 0.4 % (0-2); EOSINOPHILS % (AUTO) 0.5 % (0-6); HEMATOCRIT 30.7 % (37.9-51.0); HEMOGLOBIN 9.8 g/dL (13.5-17.0); HGB HCT DIFFERENCE -1.3; LYMPHOCYTES % (AUTO) 7.1 % (13-45); MEAN CORPUSCULAR HEMOGLOBIN 22.9 pg (27.0-33.4); MEAN CORPUSCULAR VOLUME 72 fl (80-97); MONOCYTES % (AUTO) 8.7 % (3-13); RED BLOOD COUNT 4.29 10^6/uL (4.35-5.55); SEGMENTED NEUTROPHILS % (AUTO) 83.3 % (42-78); WHITE BLOOD COUNT 15.4 10^3/uL (4.0-10.5)
[2016-09-18 07:42] LABS: PROTHROMBIN TIME 15.1 SEC (11.4-15.4)
[2016-09-18 07:43] LABS: PARTIAL THROMBOPLASTIN TIME 36.7 SEC (23.5-35.8)
[2016-09-18] MEDS: ENOXAPARIN SODIUM INJ 40 MG/0.4 ML DISP.SYRIN SUBCUT SCH (08:00)
[2016-09-18 08:01] LABS: ANION GAP 14 (5-19); BLOOD UREA NITROGEN 14 mg/dL (7-20); CALCIUM 8.6 mg/dL (8.4-10.2); CARBON DIOXIDE 26 mmol/L (22-30); CHLORIDE 101 mmol/L (98-107); GLUCOSE 83 mg/dL (75-110); POTASSIUM 3.7 mmol/L (3.6-5.0); SODIUM 140.7 mmol/L (137-145)
--- NOTE | 2016-09-18 09:04 | PDOC PROGRESS REPORT ---
Subjective Progress Note for:: 09/18/16 Subjective:: No acute events overnight, bowel prep blood well, colonoscopy today Physical Exam Vital Signs: Temp Pulse Resp BP Pulse Ox 97.5 F 125 H 16 128/67 H 98 09/18/16 05:05 09/18/16 05:05 09/18/16 05:05 09/18/16 05:05 09/18/16 05:05 Intake & Output 09/17/16 09/18/16 09/19/16 06:59 06:59 06:59 Intake Total 3717 3782 Output Total 2475 Balance 1242 3782 Weight 63.7 kg 51.165 kg General appearance: PRESENT: no acute distress, well-developed, well-nourished Head exam: PRESENT: atraumatic, normocephalic Eye exam: PRESENT: conjunctiva pink, EOMI, PERRLA. ABSENT: scleral icterus Ear exam: PRESENT: normal external ear exam Mouth exam: PRESENT: moist, tongue midline Neck exam: ABSENT: carotid bruit, JVD, lymphadenopathy, thyromegaly Respiratory exam: PRESENT: clear to auscultation yvette. ABSENT: rales, rhonchi, wheezes Cardiovascular exam: PRESENT: RRR. ABSENT: diastolic murmur, rubs, systolic murmur Pulses: PRESENT: normal dorsalis pedis pul Vascular exam: PRESENT: normal capillary refill GI/Abdominal exam: PRESENT: normal bowel sounds, soft. ABSENT: distended, guarding, mass, organolmegaly, rebound, tenderness Rectal exam: PRESENT: deferred Extremities exam: PRESENT: full ROM. ABSENT: calf tenderness, clubbing, pedal edema Neurological exam: PRESENT: alert, awake, oriented to person, oriented to place , oriented to time, oriented to situation, CN II-XII grossly intact. ABSENT: motor sensory deficit Psychiatric exam: PRESENT: appropriate affect, normal mood. ABSENT: homicidal ideation, suicidal ideation Skin exam: PRESENT: dry, intact, warm. ABSENT: cyanosis, rash Results Laboratory Results: 09/18/16 07:09 09/18/16 07:09 09/17/16 09/17/16 09/17/16 04:10 04:10 04:10 WBC RBC Hgb Hct MCV MCH MCHC RDW Plt Count Seg Neutrophils % Lymphocytes % Monocytes % Eosinophils % Basophils % Absolute Neutrophils Absolute Lymphocytes Absolute Monocytes Absolute Eosinophils Absolute Basophils Retic Count (auto) 2.60 Absolute Retic 0.096 Sodium Potassium Chloride Carbon Dioxide Anion Gap BUN Creatinine Est GFR ( Amer) Est GFR (Non-Af Amer) Glucose Calcium Iron < 10 L TIBC 213 L % Saturation UNABLE TO CALCULATE Transferrin 142 L Ferritin 274.00 Vitamin B12 276.0 Folate 5.68 Blood Type Antibody Screen 09/17/16 09/18/16 09/18/16 16:15 07:09 07:09 WBC 15.4 H RBC 4.29 L Hgb 9.8 L Hct 30.7 L MCV 72 L MCH 22.9 L MCHC 32.0 RDW 19.0 H Plt Count 347 Seg Neutrophils % 83.3 H Lymphocytes % 7.1 L Monocytes % 8.7 Eosinophils % 0.5 Basophils % 0.4 Absolute Neutrophils 12.8 H Absolute Lymphocytes 1.1 Absolute Monocytes 1.3 Absolute Eosinophils 0.1 Absolute Basophils 0.1 Retic Count (auto) Absolute Retic Sodium 140.7 Potassium 3.7 Chloride 101 Carbon Dioxide 26 Anion Gap 14 BUN 14 Creatinine 0.80 Est GFR ( Amer) > 60 Est GFR (Non-Af Amer) > 60 Glucose 83 Calcium 8.6 Iron TIBC % Saturation Transferrin Ferritin Vitamin B12 Folate Blood Type O POSITIVE Antibody Screen NEGATIVE Impressions: Chest CT 09/14/16 12:33 IMPRESSION: Large cavitary mass in the left lung apex worrisome for primary tumor. No aggressive chest wall erosions or extension into the left axilla Mediastinal adenopathy Head CT 09/16/16 00:00 IMPRESSION: NORMAL BRAIN CT WITHOUT AND WITH CONTRAST. Abdomen/Pelvis CT 09/16/16 06:00 IMPRESSION: Abnormal wall thickening and luminal narrowing of the cecum proximal to and at the level of the ileocecal valve. Differential is colitis versus tumor. Body Scan Nuclear Medicine 09/16/16 06:00 IMPRESSION: NORMAL BONE SCAN. Chest X-Ray 09/17/16 00:00 IMPRESSION: No pneumothorax. Guidance Needle Placement CT 09/17/16 00:00 IMPRESSION: CT GUIDED BIOPSY OF THE lung PERFORMED WITHOUT IMMEDIATE COMPLICATION. PATHOLOGY PENDING. Lung Biopsy CT 09/17/16 07:45 IMPRESSION: CT GUIDED BIOPSY OF THE lung PERFORMED WITHOUT IMMEDIATE COMPLICATION. PATHOLOGY PENDING. Assessment & Plan - Diagnosis (1) Lung mass Is this a current diagnosis for this admission?: YesPlan: Likely going to be a primary lung cancer, thus far on staging imaging should be at least a clinical stage III, bone scan was negative, awaiting biopsy results. Patient can be discharged after colonoscopy today, we will make appointment to see us in one week. (2) Anemia, unspecified Qualifiers: Anemia type: other cause Other causes of anemia: other cause, not classified Qualified Code(s): D64.89 - Other specified anemias Is this a current diagnosis for this admission?: YesPlan: Globin improved posttransfusion, we will follow that as an outpatient. - Time Time Spent with patient: 35 or more minutes Critical Time spent with patient: 35 or more minutes Anticipated discharge: Home Within: within 24 hours
[2016-09-18] MEDS ORDERED: PROMETHAZINE HCL INJ 25 MG/1 ML VIAL ONE (11:20)
[2016-09-18] MEDS ORDERED: ONDANSETRON HCL INJ/PF 4 MG/2 ML SDV ONE (11:20)
[2016-09-18] MEDS ORDERED: DIPHENHYDRAMINE HCL 50 MG/ML VIAL ONE (11:20)
[2016-09-18] MEDS ORDERED: NALOXONE HCL INJ/PF 0.4 MG/1 ML SDV ONE (11:20)
[2016-09-18] MEDS ORDERED: EPINEPHRINE INJ 1 MG/10 ML DISP.SYRIN ONE (11:21)
[2016-09-18] MEDS ORDERED: GLUCAGON,HUMAN RECOMB 1 MG INJ ONE (11:21)
[2016-09-18] MEDS ORDERED: FENTANYL CITRATE INJ/PF 100 MCG/2 ML AMPUL ONE (11:21)
[2016-09-18] MEDS ORDERED: FLUMAZENIL INJ 0.5 MG/5 ML VIAL IV ONE (11:21)
[2016-09-18] MEDS ORDERED: MIDAZOLAM 2 MG/2 ML INJ ONE (11:21)
[2016-09-18] MEDS: NORMAL SALINE 1000 ML 1,000 ML IV PRN (11:45)
[2016-09-18] MEDS: MIDAZOLAM 2 MG/2 ML INJ ONE ×2 (14:00→14:09)
[2016-09-18] MEDS: FENTANYL CITRATE INJ/PF 100 MCG/2 ML AMPUL ONE ×2 (14:01→14:06)
--- NOTE | 2016-09-18 14:39 | Operative Report ---
Operative Report DATE OF SURGERY: 09/18/16 Operative Report: The risks, benefits and alternatives of the procedure including risks of bleeding, perforation requiring surgery are explained to the patient detail and informed consent is obtained. Patient is placed in the left lateral decubital position brought to the endoscopy suite. Conscious sedation medications are provided. Timeout is called. A rectal examination was done which did not reveal any masses, tears or fissures. An Olympus videoscope was inserted into the patient's rectum. Keeping the lumen ahead, the scope was then carefully advanced all the way to the cecum. The cecum as identified by the usual anatomical landmarks including the ileocecal valve as well as the appendiceal office. Photodocumentation was obtained. The scope was then sequentially pulled back via the various segments of the colon including the ascending colon , hepatic flexure, transverse colon, splenic flexure, descending colon and finally into the rectosigmoid colon. Mucosa does otherwise appeared to be normal except in the cecum where there is some thickening and ulceration. Biopsies obtained PREOPERATIVE DIAGNOSIS: Abnormal CT scan showing cecal thickening POSTOPERATIVE DIAGNOSIS: Cecal thickening noted along with ulcerations status post biopsy rule out adenocarcinoma OPERATION: Colonoscopy with biopsy SURGEON: KATYA PERALTA ANESTHESIA: Moderate Sedation - 3 mg of Versed, 50 g of fentanyl. TISSUE REMOVED OR ALTERED: Colon specimens obtained COMPLICATIONS: None. ESTIMATED BLOOD LOSS: none. INTRAOPERATIVE FINDINGS: As described above. PROCEDURE: Patient tolerated the procedure well. No immediate postprocedure complications are noted. Patient is discharged in good condition. Discharge date 09/18/2016. Discharge diet: Regular. He can resume normal activity level. Await on biopsies No further issues he can be discharged.
--- NOTE | 2016-09-18 19:40 | PDOC DISCHARGE SUMMARY ---
General - Admit/Disc Date/PCP Admission Date/Primary Care Provider: 09/14/16 18:36 CHAIM MELVIN, Discharge Date: 09/19/16 - Discharge Diagnosis (1) Cavitating mass in left upper lung lobe Is this a current diagnosis for this admission?: Yes (2) Hypercalcemia of malignancy Is this a current diagnosis for this admission?: Yes (3) Hyperkalemia Is this a current diagnosis for this admission?: Yes (4) Anxiety Is this a current diagnosis for this admission?: Yes (5) Acid reflux disease Is this a current diagnosis for this admission?: Yes (6) Anemia associated with lung cancer treated with erythropoietin Is this a current diagnosis for this admission?: Yes (7) Abnormal CT scan, colon Is this a current diagnosis for this admission?: Yes - Additional Information Resuscitation Status: Full Code Discharge Diet: As Tolerated Discharge Activity: Activity As Tolerated Home Medications: Albuterol Sulfate [Ventolin HFA MDI 18 GM] 2 puff IH Q4HP PRN 09/14/16 Chlorpheniramine Maleate [Allergy Relief] 4 mg PO DAILYP PRN 09/14/16 Hydrochlorothiazide [Hydrodiuril 25 mg Tablet] 25 mg PO QAM 09/14/16 Lisinopril [Prinivil 40 mg Tablet] 40 mg PO Q12 09/14/16 Metoprolol Tartrate [Lopressor 50 mg Tablet] 50 mg PO Q12 09/14/16 History of Present Illness History of Present Illness: Patient 61-year-old male with history of chronic obstructive pulmonary disease, tobacco use, is still smoking about 11 years ago, he came to the emergency room because of progressive shortness of breath and occasional hemoptysis in the emergency room he was evaluated a chest x-ray was done that showed a mass in the left upper lobe. Subsequent CT chest with contrast was done it showed a thick-walled cavitary mass that measures 8.6 x 8.6 transversely and a 8.6 craniocaudadly. There is involvement of lymph nodes as well, he has also lost a lot of weight, I saw me last in the office last year from the last time I saw him to date.,He has lost about 20 pounds. This lesion is suspicious for primary lung cancer, he may need a CT-guided lung biopsy probably on Saturday, this could not be done this weekend. 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 She was seen by oncology Dr. Faustin and a metastatic workup was done including CT of the head, a bone scan, CT of the abdomen and pelvis. CT scan of abdomen showed showed a thickened cecum and because of that. GI consultation was obtained and patient underwent colonoscopy that confirmed cecal thickening with ulceration biopsy was taken. He had episode of hypoxemia associated with ambulation, when he ambulates the oxygen saturation tends to drop to be low 80s. Physical Exam Vital Signs: Temp Pulse Resp BP Pulse Ox 98.6 F 140 H 19 134/63 H 91 L 09/18/16 16:48 09/18/16 16:48 09/18/16 16:48 09/18/16 16:48 09/18/16 16:48 Intake & Output 09/17/16 09/18/16 09/19/16 06:59 06:59 06:59 Intake Total 3717 3782 2111 Output Total 2475 375 Balance 1242 3782 1736 Weight 63.7 kg 51.165 kg General appearance: PRESENT: no acute distress Eye exam: PRESENT: PERRLA Respiratory exam: PRESENT: decreased breath sounds Cardiovascular exam: PRESENT: +S1, +S2 GI/Abdominal exam: PRESENT: soft Neurological exam: PRESENT: alert Results Laboratory Results: 09/18/16 07:09 09/18/16 07:09 09/17/16 09/17/16 09/18/16 04:10 16:15 07:09 WBC RBC Hgb Hct MCV MCH MCHC RDW Plt Count Seg Neutrophils % Lymphocytes % Monocytes % Eosinophils % Basophils % Absolute Neutrophils Absolute Lymphocytes Absolute Monocytes Absolute Eosinophils Absolute Basophils Sodium 140.7 Potassium 3.7 Chloride 101 Carbon Dioxide 26 Anion Gap 14 BUN 14 Creatinine 0.80 Est GFR ( Amer) > 60 Est GFR (Non-Af Amer) > 60 Glucose 83 Calcium 8.6 Transferrin 142 L Blood Type O POSITIVE Antibody Screen NEGATIVE 09/18/16 07:09 WBC 15.4 H RBC 4.29 L Hgb 9.8 L Hct 30.7 L MCV 72 L MCH 22.9 L MCHC 32.0 RDW 19.0 H Plt Count 347 Seg Neutrophils % 83.3 H Lymphocytes % 7.1 L Monocytes % 8.7 Eosinophils % 0.5 Basophils % 0.4 Absolute Neutrophils 12.8 H Absolute Lymphocytes 1.1 Absolute Monocytes 1.3 Absolute Eosinophils 0.1 Absolute Basophils 0.1 Sodium Potassium Chloride Carbon Dioxide Anion Gap BUN Creatinine Est GFR ( Amer) Est GFR (Non-Af Amer) Glucose Calcium Transferrin Blood Type Antibody Screen Impressions: Chest CT 09/14/16 12:33 IMPRESSION: Large cavitary mass in the left lung apex worrisome for primary tumor. No aggressive chest wall erosions or extension into the left axilla Mediastinal adenopathy Head CT 09/16/16 00:00 IMPRESSION: NORMAL BRAIN CT WITHOUT AND WITH CONTRAST. Abdomen/Pelvis CT 09/16/16 06:00 IMPRESSION: Abnormal wall thickening and luminal narrowing of the cecum proximal to and at the level of the ileocecal valve. Differential is colitis versus tumor. Body Scan Nuclear Medicine 09/16/16 06:00 IMPRESSION: NORMAL BONE SCAN. Chest X-Ray 09/17/16 00:00 IMPRESSION: No pneumothorax. Guidance Needle Placement CT 09/17/16 00:00 IMPRESSION: CT GUIDED BIOPSY OF THE lung PERFORMED WITHOUT IMMEDIATE COMPLICATION. PATHOLOGY PENDING. Lung Biopsy CT 09/17/16 07:45
[2016-09-18] MEDS ORDERED: SODIUM CHLORIDE NASAL SPRAY 44 ML NASL PRN (19:41)
[2016-09-18] MEDS: LEVOFLOXACIN 750 MG/D5W RTU 750 MG/150 ML RTUPB IV SCH (20:48)
[2016-09-18] MEDS ORDERED: ZOLPIDEM TARTRATE 5 MG TABLET PO SCH (22:00)
[2016-09-19 05:08] LABS: ANION GAP 10 (5-19); BLOOD UREA NITROGEN 13 mg/dL (7-20); CALCIUM 7.4 mg/dL (8.4-10.2); CARBON DIOXIDE 24 mmol/L (22-30); CHLORIDE 101 mmol/L (98-107); CREATININE RESULT 0.69 mg/dL (0.52-1.25); GLUCOSE 90 mg/dL (75-110); POTASSIUM 3.4 mmol/L (3.6-5.0); SODIUM 134.6 mmol/L (137-145)
[2016-09-19] MEDS: LANSOPRAZOLE 30 MG TAB.RAP.DR PO SCH (05:14)
--- NOTE | 2016-09-19 07:27 | PDOC PROGRESS REPORT ---
Subjective Progress Note for:: 09/19/16 Subjective:: Patient underwent colonoscopy yesterday colonoscopy was completed to the cecum there is some thickening with small ulcers noted biopsies are obtained from the respiratory standpoint, he did well during sedation he does not have much reserve capacity due to his neoplasm, however no saturation decrease noted patient denies any bleeding or abdominal pain pathology is still pending he is tolerating a diet, he should be able to be discharge if there are no other medical issues Physical Exam Vital Signs: Temp Pulse Resp BP Pulse Ox 98.4 F 118 H 18 121/69 96 09/19/16 02:57 09/19/16 02:57 09/19/16 02:57 09/19/16 02:57 09/19/16 02:57 Intake & Output 09/18/16 09/19/16 09/20/16 06:59 06:59 06:59 Intake Total 3782 2836 Output Total 800 Balance 3782 2036 Weight 51.165 kg 65.862 kg General appearance: PRESENT: mild distress Head exam: PRESENT: atraumatic, normocephalic Eye exam: PRESENT: EOMI, PERRLA. ABSENT: nystagmus, periorbital swelling, scleral icterus Mouth exam: PRESENT: neck supple Neck exam: ABSENT: meningismus, tenderness, thyromegaly Respiratory exam: PRESENT: decreased breath sounds, tachypnea. ABSENT: rhonchi , stridor Cardiovascular exam: PRESENT: RRR, +S1, +S2. ABSENT: gallop, rubs Pulses: PRESENT: normal carotid pulses GI/Abdominal exam: PRESENT: normal bowel sounds, soft. ABSENT: Gates's sign, rebound, rigid, tenderness Extremities exam: ABSENT: joint swelling Musculoskeletal exam: PRESENT: normal inspection Neurological exam: PRESENT: alert, awake, oriented to person, oriented to place , oriented to time, CN II-XII grossly intact Psychiatric exam: PRESENT: appropriate affect Skin exam: PRESENT: normal color. ABSENT: jaundice, mottled, pallor, petechiae , urticaria, vesicles Results Laboratory Results: 09/18/16 07:09 09/19/16 04:19 09/18/16 09/18/16 09/19/16 07:09 07:09 04:19 WBC 15.4 H RBC 4.29 L Hgb 9.8 L Hct 30.7 L MCV 72 L MCH 22.9 L MCHC 32.0 RDW 19.0 H Plt Count 347 Seg Neutrophils % 83.3 H Lymphocytes % 7.1 L Monocytes % 8.7 Eosinophils % 0.5 Basophils % 0.4 Absolute Neutrophils 12.8 H Absolute Lymphocytes 1.1 Absolute Monocytes 1.3 Absolute Eosinophils 0.1 Absolute Basophils 0.1 Sodium 140.7 134.6 L Potassium 3.7 3.4 L Chloride 101 101 Carbon Dioxide 26 24 Anion Gap 14 10 BUN 14 13 Creatinine 0.80 0.69 Est GFR ( Amer) > 60 > 60 Est GFR (Non-Af Amer) > 60 > 60 Glucose 83 90 Calcium 8.6 7.4 L Impressions: Chest CT 09/14/16 12:33 IMPRESSION: Large cavitary mass in the left lung apex worrisome for primary tumor. No aggressive chest wall erosions or extension into the left axilla Mediastinal adenopathy Head CT 09/16/16 00:00 IMPRESSION: NORMAL BRAIN CT WITHOUT AND WITH CONTRAST. Abdomen/Pelvis CT 09/16/16 06:00 IMPRESSION: Abnormal wall thickening and luminal narrowing of the cecum proximal to and at the level of the ileocecal valve. Differential is colitis versus tumor. Body Scan Nuclear Medicine 09/16/16 06:00 IMPRESSION: NORMAL BONE SCAN. Chest X-Ray 09/17/16 00:00 IMPRESSION: No pneumothorax. Guidance Needle Placement CT 09/17/16 00:00 IMPRESSION: CT GUIDED BIOPSY OF THE lung PERFORMED WITHOUT IMMEDIATE COMPLICATION. PATHOLOGY PENDING. Lung Biopsy CT 09/17/16 07:45 IMPRESSION: CT GUIDED BIOPSY OF THE lung PERFORMED WITHOUT IMMEDIATE COMPLICATION. PATHOLOGY PENDING. Assessment & Plan - Diagnosis (1) Abnormal CT scan, colon Plan: Thickening confirmed on colonoscopy patient may have a potential lesion in the colon whether or not this represent a 2nd focus or whether it is part of the same process would depend on the pathology from the biopsy of the lung mass and colon lesion when they are ready follow up as outpatient (2) Acid reflux disease Qualifiers: Esophagitis presence: esophagitis presence not specified Qualified Code(s): K21.9 - Gastro-esophageal reflux disease without esophagitis Is this a current diagnosis for this admission?: YesPlan: continue to follow continue medications for now (3) Anemia, unspecified Qualifiers: Anemia type: other cause Other causes of anemia: other cause, not classified Qualified Code(s): D64.89 - Other specified anemias Is this a current diagnosis for this admission?: YesPlan: will need to follow since would be expected to worsen as disease process continues
--- NOTE | 2016-09-19 08:48 | PDOC PROGRESS REPORT ---
Subjective Progress Note for:: 09/19/16 Subjective:: Patient getting ready to go home today, oxygen is getting set up Physical Exam Vital Signs: Temp Pulse Resp BP Pulse Ox 97.6 F 115 H 20 122/73 95 09/19/16 07:25 09/19/16 07:25 09/19/16 07:25 09/19/16 07:25 09/19/16 07:25 Intake & Output 09/18/16 09/19/16 09/20/16 06:59 06:59 06:59 Intake Total 3782 2836 Output Total 800 Balance 3782 2036 Weight 51.165 kg 65.862 kg General appearance: PRESENT: no acute distress, well-developed, well-nourished Head exam: PRESENT: atraumatic, normocephalic Eye exam: PRESENT: conjunctiva pink, EOMI, PERRLA. ABSENT: scleral icterus Ear exam: PRESENT: normal external ear exam Mouth exam: PRESENT: moist, tongue midline Neck exam: ABSENT: carotid bruit, JVD, lymphadenopathy, thyromegaly Respiratory exam: PRESENT: clear to auscultation yvette. ABSENT: rales, rhonchi, wheezes Cardiovascular exam: PRESENT: RRR. ABSENT: diastolic murmur, rubs, systolic murmur Pulses: PRESENT: normal dorsalis pedis pul Vascular exam: PRESENT: normal capillary refill GI/Abdominal exam: PRESENT: normal bowel sounds, soft. ABSENT: distended, guarding, mass, organolmegaly, rebound, tenderness Rectal exam: PRESENT: deferred Extremities exam: PRESENT: full ROM. ABSENT: calf tenderness, clubbing, pedal edema Neurological exam: PRESENT: alert, awake, oriented to person, oriented to place , oriented to time, oriented to situation, CN II-XII grossly intact. ABSENT: motor sensory deficit Psychiatric exam: PRESENT: appropriate affect, normal mood. ABSENT: homicidal ideation, suicidal ideation Skin exam: PRESENT: dry, intact, warm. ABSENT: cyanosis, rash Results Laboratory Results: 09/18/16 07:09 09/19/16 04:19 09/19/16 04:19 Sodium 134.6 L Potassium 3.4 L Chloride 101 Carbon Dioxide 24 Anion Gap 10 BUN 13 Creatinine 0.69 Est GFR ( Amer) > 60 Est GFR (Non-Af Amer) > 60 Glucose 90 Calcium 7.4 L Impressions: Chest CT 09/14/16 12:33 IMPRESSION: Large cavitary mass in the left lung apex worrisome for primary tumor. No aggressive chest wall erosions or extension into the left axilla Mediastinal adenopathy Head CT 09/16/16 00:00 IMPRESSION: NORMAL BRAIN CT WITHOUT AND WITH CONTRAST. Abdomen/Pelvis CT 09/16/16 06:00 IMPRESSION: Abnormal wall thickening and luminal narrowing of the cecum proximal to and at the level of the ileocecal valve. Differential is colitis versus tumor. Body Scan Nuclear Medicine 09/16/16 06:00 IMPRESSION: NORMAL BONE SCAN. Chest X-Ray 09/17/16 00:00 IMPRESSION: No pneumothorax. Guidance Needle Placement CT 09/17/16 00:00 IMPRESSION: CT GUIDED BIOPSY OF THE lung PERFORMED WITHOUT IMMEDIATE COMPLICATION. PATHOLOGY PENDING. Lung Biopsy CT 09/17/16 07:45 IMPRESSION: CT GUIDED BIOPSY OF THE lung PERFORMED WITHOUT IMMEDIATE COMPLICATION. PATHOLOGY PENDING. Assessment & Plan - Diagnosis (1) Malignant neoplasm of upper lobe of left lung Is this a current diagnosis for this admission?: YesPlan: Patient now with defined squamous cell carcinoma of the lung, he has stage III disease per imaging thus far, today we had a long discussion with family about next steps of care, he will need consideration of concurrent chemoradiation, hopeful start in the next 1-2 weeks, we will arrange this as an outpatient.
[2016-09-19] MEDS: ENOXAPARIN SODIUM INJ 40 MG/0.4 ML DISP.SYRIN SUBCUT SCH (09:59)
[2016-09-19 12:59] VITALS: BP 132/75
== END 2016-09-19 12:55 | disposition home or self-care (01) | DRG 181 ==
LOC: ER 09:17 → EH 16:32 → UNDOADMIN 16:32 → EH 18:36 → 3N 23:22
PROVIDERS: ADMIT Internal Medicine; ATTEND Internal Medicine
PROC: 30233N1 Transfusion of Nonautologous Red Blood Cells into Peripheral Vein, Percutaneous Approach (ICD-10-PCS; principal; 2016-09-17)
PROC: 0BBG3ZX Excision of Left Upper Lung Lobe, Percutaneous Approach, Diagnostic (ICD-10-PCS; 2016-09-17)
PROC: BB241ZZ Computerized Tomography (CT Scan) of Bilateral Lungs using Low Osmolar Contrast (ICD-10-PCS; 2016-09-17)
PROC: 0DBH8ZX Excision of Cecum, Via Natural or Artificial Opening Endoscopic, Diagnostic (ICD-10-PCS; 2016-09-18)
DX: C34.12 Malignant neoplasm of upper lobe, left bronchus or lung (principal); R04.2 Hemoptysis; K63.3 Ulcer of intestine; D64.89 Other specified anemias; E83.52 Hypercalcemia; E87.5 Hyperkalemia; K21.9 Gastro-esophageal reflux disease without esophagitis; F41.9 Anxiety disorder, unspecified; R63.4 Abnormal weight loss; Z68.22 Body mass index [BMI] 22.0-22.9, adult; J44.9 Chronic obstructive pulmonary disease, unspecified; I10 Essential (primary) hypertension; Z87.891 Personal history of nicotine dependence
CPT/HCPCS: 32405; 36415; 36430; 45380; 70470; 71010; 71020; 71260; 74177; 77012; 78306; 80048; 80053; 81001; 82550; 82553; 82607; 82728; 82746; 83540; 83550; 83970; 84439; 84443; 84466; 84484; 85025; 85045; 85610; 85730; 86850; 86900; 86901; 86920; 87040; 88305; 88313; 88341; 88342; 93005; 93010; 94640; 99285; A9503; J0171; J1200; J1610; J1650; J1940; J1956; J2250; J2310; J2405; J2430; J2550; J3010; J3490; J7030; J7620; P9016; Q9969

== ENCOUNTER → 2016-10-07 | Outpatient (CLI) | payer SELFPAY | LOC: RAD 16:39 | PROVIDERS: ATTEND Radiology Radiation Oncology | DX: C34.12 Malignant neoplasm of upper lobe, left bronchus or lung (principal); C77.1 Secondary and unspecified malignant neoplasm of intrathoracic lymph nodes | CPT/HCPCS: 78815; A9552 ==

== ENCOUNTER 2016-10-08 06:11 | Day surgery (SDC) | payer SELFPAY ==
[~2016-10-08 06:11] MED LIST: CEFAZOLIN SODIUM 1 GM in DEXTROSE 5%-WATER 50 ML IV PRN; DEXTROSE 5%-1/2 NORMAL SALINE 1,000 ML IV PRN
[2016-10-08 07:24] LABS: ABSOLUTE BASOPHILS # (AUTO) 0.1 10^3/uL (0.0-0.2); ABSOLUTE EOSINOPHILS # (AUTO) 0.1 10^3/uL (0.0-0.6); ABSOLUTE LYMPHOCYTES (AUTO) 1.1 10^3/uL (0.5-4.7); ABSOLUTE MONOCYTES (AUTO) 1.7 10^3/uL (0.1-1.4); ABSOLUTE NEUT (AUTO) 12.9 10^3/uL (1.7-8.2); BASOPHILS % (AUTO) 0.8 % (0-2); EOSINOPHILS % (AUTO) 0.9 % (0-6); HEMATOCRIT 32.2 % (37.9-51.0); HEMOGLOBIN 10.3 g/dL (13.5-17.0); HGB HCT DIFFERENCE -1.3; MEAN CORPUSCULAR HEMOGLOBIN 22.3 pg (27.0-33.4); MEAN CORPUSCULAR HGB CONC 31.9 g/dL (32.0-36.0); MEAN CORPUSCULAR VOLUME 70 fl (80-97); MONOCYTES % (AUTO) 10.7 % (3-13); RED BLOOD COUNT 4.61 10^6/uL (4.35-5.55); RED CELL DISTRIBUTION WIDTH 18.1 % (11.5-14.0); SEGMENTED NEUTROPHILS % (AUTO) 80.6 % (42-78); WHITE BLOOD COUNT 15.9 10^3/uL (4.0-10.5)
[2016-10-08 07:28] LABS: ANION GAP 12 (5-19); BLOOD UREA NITROGEN 30 mg/dL (7-20); CARBON DIOXIDE 23 mmol/L (22-30); CHLORIDE 92 mmol/L (98-107); GLUCOSE 107 mg/dL (75-110); POTASSIUM 5.5 mmol/L (3.6-5.0); SODIUM 126.9 mmol/L (137-145)
[2016-10-08 07:35] LABS: CALCIUM 11.9 mg/dL (8.4-10.2)
--- NOTE | 2016-10-08 08:12 | EKG REPORT ---
SEVERITY:- ABNORMAL ECG - SINUS RHYTHM CONSIDER ANTEROSEPTAL INFARCT : Confirmed by: Randall Morales MD 08-Oct-2016 08:11:52
[2016-10-08] MEDS ORDERED: LIDOCAINE 0.5% INJ-PF (5 MG/ML) 50 ML SDV ONE (08:20)
[2016-10-08] MEDS ORDERED: BACITRACIN INJ 50,000 UNIT VIAL IR PRN (08:25)
[2016-10-08] MEDS ORDERED: FENTANYL CITRATE INJ/PF 100 MCG/2 ML AMPUL ONE (08:35)
[2016-10-08] MEDS ORDERED: MIDAZOLAM 2 MG/2 ML INJ ONE (08:35)
--- NOTE | 2016-10-08 10:13 | PDOC DISCHARGE SUMMARY ---
Discharge Summary (SDC) - Discharge Final Diagnosis: #1 left-sided lung cancer. #2 COPD. #3 hypertension Date of Surgery: 10/08/16 Discharge Date: 10/08/16 Condition: Poor Forms: Sedation D/C Instructions, Discharge POC-Surgical Service Treatment or Instructions: #1 activities within moderation encouraged. #2 follow up in my office by appointment in about 1 week. Call for appointment. #3 the wounds covered clean and dry until office visit. #4 hold off on school/work until evaluation in office. #5 may shower in 48 hours, keep operated area as dry as possible. #6 discharge from ambulatory when ASU criteria met. #7 medications per medication reconciliation sheet. #8 Percocet by prescription.. Also may have one Percocet up to every 2 hours when necessary for pain greater than 4 out of 10 while in the ASU Referrals: KURT UP MD [ACTIVE STAFF] - 10/24/16 11:00 am Discharge Diet: As Tolerated Respiratory Treatments at Home: Deep Breathing/Coughing Discharge Activity: Activity As Tolerated, No Lifting Over 10 Pounds Home Care Assistance: None Needed Report the Following to Your Physician Immediately: Shortness of Breath, Nausea , Increase in Pain, Fever over 101 Degrees, Unusual Bleeding
--- NOTE | 2016-10-08 10:16 | Operative Report ---
Operative Report DATE OF SURGERY: 10/08/16 PREOPERATIVE DIAGNOSIS: #1 left-sided lung cancer. #2 COPD. #3 hypertension POSTOPERATIVE DIAGNOSIS: #1 left-sided lung cancer. #2 COPD. #3 hypertension OPERATION: #1 ultrasound evaluation and real-time access in the right internal jugular vein. #2 insertion of Port-A-Cath via real-time access in the right internal jugular vein. #3 angiogram and interpretation. SURGEON: KURT RAM SODA WORKER: none ANESTHESIA: Moderate Sedation TISSUE REMOVED OR ALTERED: Not applicable. COMPLICATIONS: None ESTIMATED BLOOD LOSS: 5 mL. INTRAOPERATIVE FINDINGS: Of a satisfactory right internal jugular vein, estimated to be 1.5 cm in diameter. Satisfactory access and positioned with the tip of the catheter in the upper right atrium. Easy egress of blood and ingress of heparinized solution. Smooth flow of contrast through the right atrium, ventricle and pulmonary outflow tract. PROCEDURE: After obtaining informed consent, the patient was taken to the [facility] and positioned supine. The [right] neck and chest were prepared with chlorhexidine and draped out with sterile linen. After the " universal timeout", in which it was verified that the patient continued to receive antibiotic, the procedure commenced. A steriley sheathed ultrasound probe was used to evaluate the [ right] internal jugular vein. Local anesthesia was infiltrated adjacent to the probe. Access into the [right] internal jugular vein was obtained using a micropuncture needle, followed by micropuncture wire and then a micropuncture catheter. This was followed by introduction of a 0.035 guidewire the tip of which was placed down into the inferior vena cava . The port sites was marked , locally anesthetized and incision made. Dissection now proceeded to the deep subcutaneous subcutaneous tissues so that a pocket for the port was made. Meticulous hemostasis was secured and the catheter was tunneled between the 2 incisions. Proximally, the catheter was now positioned using a peel-away sheath. Distally the catheter was tailored to an appropriate length and then mated to the port using the contained fixating device. The port was now placed in the pocket and the catheter optimally positioned. The port was accessed with a Shah needle and an angiogram done under digital subtraction. The findings as dictated. With adequate and satisfactory positioning, both lumens of the chamber were irrigated with heparinized solution. The wounds were now closed using interrupted 3-0 PDS to the subcutaneous tissues and a continuous subcuticular suture of 4-0 Monocryl to the skin. These are reinforced with Steri-Strips over benzoin and then dressings applied. Time: 0.2 Minute. Dose: 12 m Gy Contrast: 5 mls. Isovue 300. Copies of the dictated operative report for Dr. Kurt Marquez MD.
[2016-10-08 10:55] VITALS: BP 90/60
== END 2016-10-08 10:35 | disposition home or self-care (01) ==
LOC: CCL 06:11
PROVIDERS: ATTEND Surgery
PROC: 05HM33Z Insertion of Infusion Device into Right Internal Jugular Vein, Percutaneous Approach (ICD-10-PCS; principal; 2016-10-08)
DX: C34.90 Malignant neoplasm of unspecified part of unspecified bronchus or lung (principal); J44.9 Chronic obstructive pulmonary disease, unspecified; I10 Essential (primary) hypertension; Z79.899 Other long term (current) drug therapy; Z79.51 Long term (current) use of inhaled steroids; Z87.891 Personal history of nicotine dependence
CPT/HCPCS: 36415; 85025; 80048; 36561; 76937; 77001; 71010; 93005; 93010; C1752; Q9967; J2250; J3490 ×2; J0690; J3010; J1644

== ENCOUNTER 2016-10-16 08:57 | Outpatient (CLI) | payer SELFPAY ==
[~2016-10-16 08:57] MED LIST changes: +CARBOPLATIN IV PRN; -CEFAZOLIN SODIUM 1 GM in DEXTROSE 5%-WATER 50 ML IV PRN; -DEXTROSE 5%-1/2 NORMAL SALINE 1,000 ML IV PRN; +DIPHENHYDRAMINE HCL 50 MG/ML VIAL IV PRN; +FAMOTIDINE INJ/PF 20 MG/2 ML SDV IV PRN; +NORMAL SALINE 250 ML IV PRN; +NORMAL SALINE IV PRN; +ONDANSETRON HCL/PF 16 MG, DEXAMETHASONE SOD PHOSPHATE 10 MG in NORMAL SALINE 50 ML IV PRN; +PACLITAXEL SEMI SYNTHETIC IV PRN
[2016-10-16 09:54] LABS: ABSOLUTE BASOPHILS # (AUTO) 0.1 10^3/uL (0.0-0.2); ABSOLUTE LYMPHOCYTES (AUTO) 1.1 10^3/uL (0.5-4.7); ABSOLUTE MONOCYTES (AUTO) 1.4 10^3/uL (0.1-1.4); ABSOLUTE NEUT (AUTO) 15.5 10^3/uL (1.7-8.2); BASOPHILS % (AUTO) 0.4 % (0-2); EOSINOPHILS % (AUTO) 0.2 % (0-6); HEMATOCRIT 29.2 % (37.9-51.0); HEMOGLOBIN 9.4 g/dL (13.5-17.0); LYMPHOCYTES % (AUTO) 6.1 % (13-45); MEAN CORPUSCULAR HEMOGLOBIN 22.2 pg (27.0-33.4); MEAN CORPUSCULAR HGB CONC 32.1 g/dL (32.0-36.0); MEAN CORPUSCULAR VOLUME 69 fl (80-97); MONOCYTES % (AUTO) 7.9 % (3-13); RED BLOOD COUNT 4.22 10^6/uL (4.35-5.55); SEGMENTED NEUTROPHILS % (AUTO) 85.4 % (42-78); WHITE BLOOD COUNT 18.2 10^3/uL (4.0-10.5)
[2016-10-16 10:06] VITALS: BP 109/71
== END 2016-10-16 12:59 | disposition home or self-care (01) ==
LOC: II 08:57 → 5TH 08:59 → II 12:59
PROVIDERS: ATTEND Internal Medicine
PROC: 3E04305 Introduction of Other Antineoplastic into Central Vein, Percutaneous Approach (ICD-10-PCS; principal; 2016-10-16)
PROC: 3E04305 Introduction of Other Antineoplastic into Central Vein, Percutaneous Approach (ICD-10-PCS; 2016-10-16)
PROC: 3E043GC Introduction of Other Therapeutic Substance into Central Vein, Percutaneous Approach (ICD-10-PCS; 2016-10-16)
PROC: 3E0437Z Introduction of Electrolytic and Water Balance Substance into Central Vein, Percutaneous Approach (ICD-10-PCS; 2016-10-16)
DX: C34.12 Malignant neoplasm of upper lobe, left bronchus or lung (principal); Z51.11 Encounter for antineoplastic chemotherapy
CPT/HCPCS: 96413; 96375; 96361; 96417; 36415; 85025; J1200; J9045; J2405; J7050; J9267; S0028; J1100; 96360; 96367; 96374; 96415

== ENCOUNTER → 2016-10-22 | Outpatient (CLI) | payer MEDICAID ==
[~2016-10-22] MED LIST changes: -CARBOPLATIN IV PRN; -DIPHENHYDRAMINE HCL 50 MG/ML VIAL IV PRN; +DIPHENHYDRAMINE HCL 50 MG/ML VIAL ONE; +FAMOTIDINE INJ/PF 20 MG/2 ML SDV IV ONE; -FAMOTIDINE INJ/PF 20 MG/2 ML SDV IV PRN; +MAGNESIUM SULFATE/D5W 2 GM/200 ML RTUPB IV ONE; -NORMAL SALINE 250 ML IV PRN; -NORMAL SALINE IV PRN; -ONDANSETRON HCL/PF 16 MG, DEXAMETHASONE SOD PHOSPHATE 10 MG in NORMAL SALINE 50 ML IV PRN; -PACLITAXEL SEMI SYNTHETIC IV PRN
[2016-10-22 13:54] LABS: ABSOLUTE EOSINOPHILS # (AUTO) 0.1 10^3/uL (0.0-0.6); ABSOLUTE LYMPHOCYTES (AUTO) 0.8 10^3/uL (0.5-4.7); ABSOLUTE MONOCYTES (AUTO) 1.1 10^3/uL (0.1-1.4); ABSOLUTE NEUT (AUTO) 13.2 10^3/uL (1.7-8.2); BASOPHILS % (AUTO) 0.2 % (0-2); EOSINOPHILS % (AUTO) 0.9 % (0-6); HEMATOCRIT 32.5 % (37.9-51.0); HEMOGLOBIN 10.5 g/dL (13.5-17.0); LYMPHOCYTES % (AUTO) 5.3 % (13-45); MEAN CORPUSCULAR HEMOGLOBIN 22.5 pg (27.0-33.4); MEAN CORPUSCULAR HGB CONC 32.4 g/dL (32.0-36.0); MEAN CORPUSCULAR VOLUME 69 fl (80-97); RED BLOOD COUNT 4.69 10^6/uL (4.35-5.55); RED CELL DISTRIBUTION WIDTH 18.2 % (11.5-14.0); SEGMENTED NEUTROPHILS % (AUTO) 86.6 % (42-78); WHITE BLOOD COUNT 15.2 10^3/uL (4.0-10.5)
== END ==
LOC: II 12:58
PROVIDERS: ATTEND Radiology Radiation Oncology
DX: C34.12 Malignant neoplasm of upper lobe, left bronchus or lung (principal); C77.1 Secondary and unspecified malignant neoplasm of intrathoracic lymph nodes
CPT/HCPCS: 36415; 85025

== ENCOUNTER 2016-10-23 11:53 | Outpatient (CLI) | payer MEDICAID ==
[~2016-10-23 11:53] MED LIST changes: +CARBOPLATIN IV PRN; +DIPHENHYDRAMINE HCL 50 MG/ML VIAL IV PRN; -DIPHENHYDRAMINE HCL 50 MG/ML VIAL ONE; -FAMOTIDINE INJ/PF 20 MG/2 ML SDV IV ONE; +FAMOTIDINE INJ/PF 20 MG/2 ML SDV IV PRN; -MAGNESIUM SULFATE/D5W 2 GM/200 ML RTUPB IV ONE; +NORMAL SALINE 250 ML IV PRN; +NORMAL SALINE IV PRN; +ONDANSETRON HCL/PF 16 MG, DEXAMETHASONE SOD PHOSPHATE 10 MG in NORMAL SALINE 50 ML IV PRN; +PACLITAXEL SEMI SYNTHETIC IV PRN
[2016-10-23 12:21] VITALS: BP 99/68
[2016-10-23 13:03] LABS: ALANINE AMINOTRANSFERASE 34 U/L (21-72); ALBUMIN 2.9 g/dL (3.5-5.0); ALKALINE PHOSPHATASE 136 U/L (38-126); ANION GAP 13 (5-19); ASPARTATE AMINO TRANSFERASE 23 U/L (17-59); BILIRUBIN,TOTAL 0.9 mg/dL (0.2-1.3); BLOOD UREA NITROGEN 27 mg/dL (7-20); CARBON DIOXIDE 24 mmol/L (22-30); CHLORIDE 93 mmol/L (98-107); CREATININE RESULT 0.78 mg/dL (0.52-1.25); GLUCOSE 127 mg/dL (75-110); POTASSIUM 3.9 mmol/L (3.6-5.0); TOTAL PROTEIN 5.9 g/dL (6.3-8.2)
== END 2016-10-23 15:50 | disposition home or self-care (01) ==
LOC: II 11:53 → 5TH 11:55 → II 15:50
PROVIDERS: ATTEND Internal Medicine
PROC: 3E043GC Introduction of Other Therapeutic Substance into Central Vein, Percutaneous Approach (ICD-10-PCS; principal; 2016-10-23)
PROC: 3E043GC Introduction of Other Therapeutic Substance into Central Vein, Percutaneous Approach (ICD-10-PCS; 2016-10-23)
PROC: 3E043GC Introduction of Other Therapeutic Substance into Central Vein, Percutaneous Approach (ICD-10-PCS; 2016-10-23)
PROC: 3E04305 Introduction of Other Antineoplastic into Central Vein, Percutaneous Approach (ICD-10-PCS; 2016-10-23)
PROC: 3E04305 Introduction of Other Antineoplastic into Central Vein, Percutaneous Approach (ICD-10-PCS; 2016-10-23)
DX: C34.12 Malignant neoplasm of upper lobe, left bronchus or lung (principal); Z51.11 Encounter for antineoplastic chemotherapy
CPT/HCPCS: 96413; 96367; 96375; 96417; 36415; 80053; J1200; J9045; J2405; J7050; J9267; S0028; J1100; 96415

== ENCOUNTER → 2016-10-29 | Outpatient (CLI) | payer SELFPAY ==
[2016-10-29 11:09] LABS: HEMATOCRIT 29.6 % (37.9-51.0); HEMOGLOBIN 9.6 g/dL (13.5-17.0); HGB HCT DIFFERENCE -0.8; MEAN CORPUSCULAR HEMOGLOBIN 22.5 pg (27.0-33.4); MEAN CORPUSCULAR HGB CONC 32.3 g/dL (32.0-36.0); MEAN CORPUSCULAR VOLUME 70 fl (80-97); RED BLOOD COUNT 4.25 10^6/uL (4.35-5.55); RED CELL DISTRIBUTION WIDTH 18.1 % (11.5-14.0); WHITE BLOOD COUNT 7.4 10^3/uL (4.0-10.5)
[2016-10-29 11:39] LABS: ANISOCYTOSIS 1+; BASOPHILS % (MANUAL) 0 % (0-2); EOSINOPHILS % (MANUAL) 0 % (0-6); HYPOCHROMASIA 2+; LYMPHOCYTES % (MANUAL) 6 % (13-45); MICROCYTOSIS 2+; TOTAL CELLS COUNTED 100
== END ==
LOC: LAB 10:25
PROVIDERS: ATTEND Radiology Radiation Oncology
DX: C34.12 Malignant neoplasm of upper lobe, left bronchus or lung (principal); C77.1 Secondary and unspecified malignant neoplasm of intrathoracic lymph nodes
CPT/HCPCS: 36415; 85025

== ENCOUNTER 2016-10-31 08:38 | Outpatient (CLI) | payer SELFPAY ==
[2016-10-31] MEDS ORDERED: NORMAL SALINE 250 ML IV PRN (08:55)
[2016-10-31] MEDS ORDERED: ONDANSETRON HCL/PF 16 MG, DEXAMETHASONE SOD PHOSPHATE 10 MG in NORMAL SALINE 50 ML IV PRN (08:55)
[2016-10-31] MEDS ORDERED: DIPHENHYDRAMINE HCL 50 MG/ML VIAL IV PRN (08:56)
[2016-10-31] MEDS ORDERED: FAMOTIDINE INJ/PF 20 MG/2 ML SDV IV PRN (08:56)
[2016-10-31] MEDS ORDERED: PACLITAXEL SEMI SYNTHETIC IV PRN (08:57)
[2016-10-31] MEDS ORDERED: NORMAL SALINE IV PRN ×2 (08:57→08:58)
[2016-10-31] MEDS ORDERED: CARBOPLATIN IV PRN (08:58)
[2016-10-31 09:06] VITALS: BP 111/65
== END 2016-10-31 12:26 | disposition home or self-care (01) ==
LOC: 5TH 08:38 → II 08:38
PROVIDERS: ATTEND Internal Medicine
DX: Z51.11 Encounter for antineoplastic chemotherapy (principal); C34.12 Malignant neoplasm of upper lobe, left bronchus or lung
CPT/HCPCS: 96413; 96415; 96375; 96361; 96417; J1200; J9045; J2405; J7050; J9267; S0028; J1100; 96360; 96365; 96374; 96411

== ENCOUNTER 2016-11-07 12:48 | Outpatient (CLI) | payer MEDICAID ==
[2016-11-07 13:46] VITALS: BP 94/68
== END 2016-11-07 16:10 | disposition home or self-care (01) ==
LOC: II 12:48 → 5TH 12:53 → II 16:10
PROVIDERS: ATTEND Internal Medicine
PROC: 3E043GC Introduction of Other Therapeutic Substance into Central Vein, Percutaneous Approach (ICD-10-PCS; principal; 2016-11-07)
PROC: 3E04305 Introduction of Other Antineoplastic into Central Vein, Percutaneous Approach (ICD-10-PCS; 2016-11-07)
DX: C34.12 Malignant neoplasm of upper lobe, left bronchus or lung (principal); Z51.11 Encounter for antineoplastic chemotherapy
CPT/HCPCS: 96413; 96367; 96375; 96417; J1200; J9045; J2405; J7050; J9267; S0028; J1100; 96415

== ENCOUNTER 2016-11-08 01:30 | Observation (INO) | payer MEDICAID ==
[2016-11-08] MEDS ORDERED: LORAZEPAM INJ 2 MG/1 ML VIAL IV ONE (02:27)
[2016-11-08 03:51] LABS: HEMATOCRIT 27.3 % (37.9-51.0); HEMOGLOBIN 8.8 g/dL (13.5-17.0); HGB HCT DIFFERENCE -0.9; MEAN CORPUSCULAR HEMOGLOBIN 22.3 pg (27.0-33.4); MEAN CORPUSCULAR HGB CONC 32.4 g/dL (32.0-36.0); MEAN CORPUSCULAR VOLUME 69 fl (80-97); RED BLOOD COUNT 3.97 10^6/uL (4.35-5.55); RED CELL DISTRIBUTION WIDTH 18.2 % (11.5-14.0); WHITE BLOOD COUNT 7.8 10^3/uL (4.0-10.5)
[2016-11-08 03:58] LABS: ANION GAP 17 (5-19); BLOOD UREA NITROGEN 27 mg/dL (7-20); CALCIUM 8.8 mg/dL (8.4-10.2); CARBON DIOXIDE 20 mmol/L (22-30); CHLORIDE 94 mmol/L (98-107); CREATININE RESULT 1.12 mg/dL (0.52-1.25); GLUCOSE 157 mg/dL (75-110); POTASSIUM 4.7 mmol/L (3.6-5.0); SODIUM 130.6 mmol/L (137-145)
[2016-11-08 04:08] LABS: TROPONIN I 0.014 ng/mL
[2016-11-08 04:10] LABS: ANISOCYTOSIS 1+; BAND NEUTROPHILS % (MANUAL) 8 % (3-5); BASOPHILS % (MANUAL) 0 % (0-2); EOSINOPHILS % (MANUAL) 1 % (0-6); HYPOCHROMASIA SLIGHT; LYMPHOCYTES % (MANUAL) 3 % (13-45); MICROCYTOSIS 2+; OVALOCYTES SLIGHT; POIKILOCYTOSIS SLIGHT; POLYCHROMASIA SLIGHT; TOTAL CELLS COUNTED 100; TOXIC GRANULATION SLIGHT; TOXIC VACUOLATION PRESENT
[2016-11-08 04:11] LABS: TEAR DROP CELLS SLIGHT
[2016-11-08] MEDS ORDERED: METHYLPREDNISOLONE INJ 125 MG/2 ML SDV ONE (05:54)
--- NOTE | 2016-11-08 06:02 | ER Document Report ---
ED General - General Mode of Arrival: Medic Information source: Patient, Relative - spouse TRAVEL OUTSIDE OF THE [place] IN LAST 30 DAYS: No - HPI Onset: Other - see HPI note <RUTH GONG - Last Filed: 11/08/16 07:43> <JERAD FARLEY - Last Filed: 11/13/16 21:13> - General Chief Complaint: Breathing Difficulty Stated Complaint: HEART RATE PROBLEMS Notes: Patient is a 61-year-old male presenting to the emergency department for difficulty breathing. Patient has a history of COPD and is a former smoker. Patient is on 2 L of oxygen at home at night. Patient currently has history of squamous cell lung cancer and is currently being treated with chemotherapy. Patient was diagnosed with cirrhosis on when he was admitted to [facility]. Patient had his last dose of radiation today. Patient is tachycardic and describes his breathing as "tight." Patient also has a history of anxiety and takes Ativan as needed; patient took an Ativan at 19:00. Patient also has had some chills but denies any chest pain. Patient's primary care physician is Dr. West. Patient denies any cardiac history. Patient has no known allergies. (RUTH GONG) - Related Data Allergies/Adverse Reactions: No Known Allergies Allergy (Verified 09/14/16 09:23) Home Medications: Current Home Medications Albuterol Sulfate [Ventolin Hfa] 2 puff IH Q4 11/08/16 [History] Lisinopril [Prinivil 40 mg Tablet] 40 mg PO BID 11/08/16 [History] Lorazepam [Ativan 0.5 mg Tablet] 0.5 mg PO BID 11/08/16 [History] Metoprolol Tartrate [Lopressor] 50 mg PO BID 11/08/16 [History] Omeprazole 40 mg PO DAILY 11/08/16 [History] Oxycodone HCl [Oxy-Ir 5 mg Tablet] 5 mg PO Q6HP PRN 11/08/16 [History] Oxycodone HCl/Acetaminophen [Percocet 5-325 mg Tablet] 1 tab PO TID 11/08/16 [ History] Zolpidem Tartrate [Ambien] 10 mg PO QHS 11/08/16 [History] Past Medical History - General Information source: Patient, Relative - spouse - Social History Smoking Status: Former Smoker Chew tobacco use (# tins/day): No Frequency of alcohol use: None Drug Abuse: None Family History: None Patient has suicidal ideation: No Patient has homicidal ideation: No - Past Medical History Cardiac Medical History: Reports: Hx Hypertension Pulmonary Medical History: Reports: Hx COPD Malignancy Medical History: Reports Hx Lung Cancer <RUTH GONG - Last Filed: 11/08/16 07:43> Review of Systems - Review of Systems Constitutional: See HPI, Chills EENT: No symptoms reported Cardiovascular: No symptoms reported Respiratory: See HPI, Cough, Short of breath Gastrointestinal: No symptoms reported Genitourinary: No symptoms reported Male Genitourinary: No symptoms reported Musculoskeletal: No symptoms reported Skin: No symptoms reported Hematologic/Lymphatic: No symptoms reported Neurological/Psychological: No symptoms reported -: Yes All other systems reviewed and negative <RUTH GONG - Last Filed: 11/08/16 07:43> Physical Exam - Vital signs Interpretation: Tachycardic, Tachypneic - General General appearance: Alert In distress: Mild - HEENT Head: Normocephalic, Atraumatic Eyes: Normal Pupils: PERRL Mucous membranes: Moist - Respiratory Respiratory status: No respiratory distress Chest status: Nontender Breath sounds: Normal Chest palpation: Normal - Cardiovascular Rhythm: Regular Heart sounds: Normal auscultation Murmur: No - Abdominal Inspection: Normal Distension: No distension Bowel sounds: Normal Tenderness: Nontender Organomegaly: No organomegaly - Back Back: Normal, Nontender - Extremities General upper extremity: Normal inspection, Normal ROM, Normal strength General lower extremity: Normal inspection, Normal ROM, Normal strength, Other - no sign of DVT. No: Edema - Neurological Neuro grossly intact: Yes Cognition: Normal Orientation: AAOx4 [place] Coma Scale Eye Opening: Spontaneous Scott Coma Scale Verbal: Oriented [place] Coma Scale Motor: Obeys Commands Scott Coma Scale Total: 15 Speech: Normal Sensory: Normal - Psychological Associated symptoms: Normal affect, Normal mood - Skin Skin Temperature: Warm Skin Moisture: Dry <JORDANCASSIERUTH - Last Filed: 11/08/16 07:43> Course - Laboratory Result Diagrams: 11/08/16 03:15 11/08/16 03:15 <RUTH GONG - Last Filed: 11/08/16 07:43> - Laboratory Result Diagrams: 11/08/16 03:15 03/30/17 03:15 <JERAD FARLEY - Last Filed: 11/13/16 21:13> - Re-evaluation Re-evalutation: 11/08/16 07:26 I personally performed the services described in the documentation, reviewed and edited the documentation which was dictated to my scribe in my presence, and it accurately records my words and actions. Patient presents emergency, difficulty breathing. He has a history of non-small cell carcinoma for which she is undergoing chemotherapy and radiation his last dose today. Also has severe COPD on oxygen at home. Started on Levaquin yesterday is not sure exactly why it was little bit of a rash on his stomach when he first got here was breathing pretty well occasional expiratory wheeze he had tachycardia in the 170s sinus tachycardia got a CT of his chest and masses enlarged but no obstructive pattern. He developed into a progressive allergic reaction with urticaria diffusely throughout his body increasing wheezing gave him albuterol Atrovent Solu-Medrol magnesium with improvement still tachycardic no PE no pneumonia spoke with Dr. Kahn which we called at approximately 6 AM he called back at 7:27 AM and accepted the patient to telemetry observation (JERAD FARLEY) - Vital Signs Vital signs: Temp Pulse Resp BP Pulse Ox 97.3 F 124 H 18 115/65 100 11/10/16 14:30 11/10/16 14:30 11/10/16 14:30 11/10/16 14:30 11/10/16 14:30 - Laboratory Laboratory results interpreted by me: 11/08/16 11/08/16 11/08/16 03:15 03:15 03:15 RBC 3.97 L Hgb 8.8 L Hct 27.3 L MCV 69 L MCH 22.3 L RDW 18.2 H Seg Neuts % (Manual) 84 H Band Neutrophils % 8 H Lymphocytes % (Manual) 3 L Abs Lymphs (Manual) 0.2 L Sodium 130.6 L Chloride 94 L Carbon Dioxide 20 L BUN 27 H Glucose 157 H NT-Pro-B Natriuret Pep 1610 H - EKG Interpretation by Me Additional EKG results interpreted by me: 11/08/16 07:31 Sinus tachycardia [address] segment elevation or depression (JERAD FARLEY) Critical Care Note - Critical Care Note Total time excluding time spent on procedures (mins): 65 <JERAD FARLEY - Last Filed: 11/13/16 21:13> Discharge <RUTH GONG - Last Filed: 11/08/16 07:43> - Discharge Admitting Provider: Lennieca Unit Admitted: Telemetry <JERAD FARLEY - Last Filed: 11/13/16 21:13> - Discharge Clinical Impression: acute allergic reaction likely Levaquin, sinus tachycardia, enlarged can lung mass Condition: Stable Disposition: ADMITTED INPATIENT Scribe Documentation - Scribe Written by Scranalia:: Ruth Gong 11/08/16 7:50 acting as scribe for :: Josep <RUTH GONG - Last Filed: 11/08/16 07:43>
[2016-11-08] MEDS ORDERED: DIPHENHYDRAMINE HCL 50 MG/ML VIAL IV ONE (06:03)
[2016-11-08] MEDS ORDERED: FAMOTIDINE INJ/PF 20 MG/2 ML SDV IV ONE (06:04)
[2016-11-08] MEDS ORDERED: ALBUTEROL SULFATE 0.083% NEB 2.5 MG/3 ML AMPUL NEB ONE (06:05)
[2016-11-08] MEDS ORDERED: IPRATROPIUM BROMIDE 0.02% NEB 0.5 MG/2.5 ML AMPUL NEB PRN (06:05)
[2016-11-08] MEDS: MAGNESIUM SULFATE/D5W 100 ML IV SCH ×2 (06:24→06:32)
[2016-11-08] MEDS ORDERED: ACETAMINOPHEN 325 MG TABLET PO ONE (06:59)
[2016-11-08] MEDS ORDERED: NORMAL SALINE 1000 ML 1,000 ML IV PRN (07:52)
--- NOTE | 2016-11-08 08:18 | EKG REPORT ---
SEVERITY:- BORDERLINE ECG - SINUS TACHYCARDIA PROBABLE LEFT ATRIAL ABNORMALITY BORDERLINE RIGHT AXIS DEVIATION : Confirmed by: New Lora 08-Nov-2016 08:17:31
[2016-11-08] MEDS: ENOXAPARIN SODIUM INJ 40 MG/0.4 ML DISP.SYRIN SUBCUT SCH (08:40)
[2016-11-08] MEDS ORDERED: OXYCODONE HCL IR 5 MG TABLET PO PRN (11:02)
[2016-11-08] MEDS ORDERED: ONDANSETRON HCL INJ/PF 4 MG/2 ML SDV IV PRN (11:06)
[2016-11-08] MEDS ORDERED: NORMAL SALINE 250 ML IV ONE (11:30)
[2016-11-08] MEDS: OXYCODONE-ACETAMINOPHEN 5-325 MG TABLET PO SCH ×2 (13:55→23:12)
[2016-11-08] MEDS: ALBUTEROL SULFATE HFA (90 MCG/PUFF) 8 GM MDI (1 MDI/ER DISP) IH SCH ×3 (13:55→23:15)
[2016-11-08] MEDS ORDERED: ALBUTEROL SULFATE HFA (90 MCG/PUFF) 8 GM MDI (1 MDI/ER DISP) IH SCH (14:00)
[2016-11-08] MEDS ORDERED: ALBUTEROL SULFATE HFA (90 MCG/PUFF) 200 PUFF/8.5 GM MDI IH SCH (14:00)
[2016-11-08] MEDS: LORAZEPAM 0.5 MG TABLET PO SCH (17:02)
[2016-11-08] MEDS: NYSTATIN/DEXAMETH/DIPHEN SUSP 120 ML PO SCH ×2 (17:02→23:12)
--- NOTE | 2016-11-08 20:21 | PDOC H&P ---
History of Present Illness Admission Date/PCP: 11/08/16 07:51 CHAIM MELVIN MD History of Present Illness: RAFAL DAMON JR is a 61 year old male, he has squamous cell lung cancer on active chemotherapy and radiation therapy he came emergency room because of shortness of breath, in the emergency room he was found to have sinus tachycardia, CTA chest was done and it showed increasing 11.4 cm mass in the left upper lobe there was increase cavitation within the mass, he was also found to have a low blood pressure. He stated that he has been receiving radiation therapy on a daily basis, he was supposed to have additional treatment today but clearly is not in optimal clinical state to receive radiation therapy today, the blood pressure is low on he has sinus tachycardia that suggest dehydration, he needs IV fluid therapy Past Medical History Cardiac Medical History: Reports: Hypertension Pulmonary Medical History: Reports: Chronic Obstructive Pulmonary Disease (COPD) Malignancy Medical History: Reports: Lung Cancer Social History Smoking Status: Former Smoker Frequency of Alcohol Use: None Hx Recreational Drug Use: No Hx Prescription Drug Abuse: No - Advance Directive Resuscitation Status: Full Code Family History Family History: None Parental Family History Reviewed: Yes Children Family History Reviewed: Yes Sibling(s) Family History Reviewed.: Yes Medication/Allergy Home Medications: Albuterol Sulfate [Ventolin Hfa] 2 puff IH Q4 11/08/16 Hydrochlorothiazide [Hydrodiuril 25 mg Tablet] 25 mg PO DAILY 11/08/16 Levofloxacin [Levaquin 500 mg Tablet] 500 mg PO DAILY 11/08/16 Lisinopril [Prinivil 40 mg Tablet] 40 mg PO BID 11/08/16 Lorazepam [Ativan 0.5 mg Tablet] 0.5 mg PO BID 11/08/16 Metoprolol Tartrate [Lopressor] 50 mg PO BID 11/08/16 Omeprazole 40 mg PO DAILY 11/08/16 Oxycodone HCl [Oxy-Ir 5 mg Tablet] 5 mg PO Q6HP PRN 11/08/16 Oxycodone HCl/Acetaminophen [Percocet 5-325 mg Tablet] 1 tab PO TID 11/08/16 Zolpidem Tartrate [Ambien] 10 mg PO QHS 11/08/16 Allergies/Adverse Reactions: No Known Allergies Allergy (Verified 09/14/16 09:23) Review of Systems Constitutional: PRESENT: fatigue Ears: ABSENT: hearing changes Cardiovascular: PRESENT: dyspnea on exertion Respiratory: PRESENT: dyspnea Gastrointestinal: PRESENT: nausea Integumentary: ABSENT: rash, wounds Neurological: PRESENT: frequent falls Psychiatric: ABSENT: anxiety, depression, homidical ideation, suicidal ideation Endocrine: ABSENT: cold intolerance, heat intolerance, menstrual abnormalities, polydipsia, polyuria Hematologic/Lymphatic: ABSENT: easy bleeding, easy bruising, lymphadenopathy Physical Exam Vital Signs: Temp Pulse Resp BP Pulse Ox 97.6 F 118 H 18 93/51 L 98 11/08/16 16:16 11/08/16 16:16 11/08/16 16:16 11/08/16 16:16 11/08/16 16:16 Intake & Output 11/07/16 11/08/16 11/09/16 06:59 06:59 06:59 Intake Total 1260 Balance 1260 Weight 59.9 kg General appearance: PRESENT: thin Eye exam: PRESENT: PERRLA. ABSENT: scleral icterus Mouth exam: PRESENT: moist Neck exam: PRESENT: full ROM Cardiovascular exam: PRESENT: +S1, +S2 Vascular exam: PRESENT: normal capillary refill GI/Abdominal exam: PRESENT: normal bowel sounds, soft Rectal exam: PRESENT: deferred Neurological exam: PRESENT: alert Psychiatric exam: PRESENT: appropriate affect Skin exam: PRESENT: dry, intact, warm Results Impressions: Chest/Abdomen CTA 11/08/16 02:27 IMPRESSION: Increasing 11.4 cm cavitating mass of the left upper lobe consistent clinical history of squamous cell lung carcinoma. Assessment & Plan - Diagnosis (1) Hypotension Qualifiers: Hypotension type: unspecified hypotension type Qualified Code(s): I95.9 - Hypotension, unspecified Is this a current diagnosis for this admission?: YesPlan: Patient is admitted to be treated with IV fluid to restore blood pressure and optimize his clinical state to enable him continue his cancer treatment (2) Sinus tachycardia Is this a current diagnosis for this admission?: Yes (3) Malignant neoplasm of upper lobe of left lung Is this a current diagnosis for this admission?: Yes
[2016-11-08] MEDS ORDERED: (PENDING PHARMACY ID) (Zolpidem Tartrate [Ambien] 10 MG) PO SCH (22:00)
[2016-11-08] MEDS: ZOLPIDEM TARTRATE 5 MG TABLET PO SCH (23:08)
[2016-11-08] MEDS: METOPROLOL TARTRATE 50 MG TABLET PO SCH (23:09)
[2016-11-08] MEDS: LISINOPRIL 10 MG TABLET PO SCH (23:12)
[2016-11-09] MEDS: ALBUTEROL SULFATE HFA (90 MCG/PUFF) 8 GM MDI (1 MDI/ER DISP) IH SCH ×6 (01:05→22:35)
[2016-11-09] MEDS: OXYCODONE-ACETAMINOPHEN 5-325 MG TABLET PO SCH ×3 (06:28→22:28)
[2016-11-09] MEDS: NYSTATIN/DEXAMETH/DIPHEN SUSP 120 ML PO SCH ×4 (07:57→22:28)
[2016-11-09] MEDS: LANSOPRAZOLE 30 MG TAB.RAP.DR PO SCH (07:57)
[2016-11-09] MEDS: ENOXAPARIN SODIUM INJ 40 MG/0.4 ML DISP.SYRIN SUBCUT SCH (07:58)
--- NOTE | 2016-11-09 08:19 | PDOC CONSULTATION ---
Consultation Consult Date: 11/09/16 Attending physician:: CHAIM MELVIN Consult reason:: Asked by Dr. Melvin to see patient with known history of stage III lung cancer receiving concurrent chemoradiation, here with hypotension , tachycardia, dehydration, drug reaction History of Present Illness Admission Date/PCP: 11/08/16 07:51 CHAIM MELVIN MD Patient complains of: As above History of Present Illness: 61-year-old male with known history of stage III non-small cell lung cancer, receiving concurrent chemoradiation, is about long-term through so far. Recently he has been having some mucositis related to the chemoradiation, and has been taking less by mouth, we discussed the use of [employer] in our office, and he did start doing that. He came in with tachycardia, fever. He had prior been started on Levaquin, never had that medication so developed a rash 2 days after that. And have a fever developing at the same time. He has received 24 hours of IV hydration and feels much better today. Past Medical History Cardiac Medical History: Reports: Hypertension Denies: Coronary Artery Disease, Myocardial Infarction Pulmonary Medical History: Reports: Chronic Obstructive Pulmonary Disease (COPD) Denies: Asthma, Bronchitis, Pneumonia Neurological Medical History: Denies: Seizures Malignancy Medical History: Reports: Lung Cancer Musculoskeltal Medical History: Denies: Arthritis Hematology: Denies: Anemia Past Surgical History Past Surgical History: Reports: Other - Port placement, lung biopsy Social History Smoking Status: Former Smoker Frequency of Alcohol Use: None Hx Recreational Drug Use: No Hx Prescription Drug Abuse: No - Advance Directive Resuscitation Status: Full Code Family History Family History: None Parental Family History Reviewed: Yes Children Family History Reviewed: Yes Sibling(s) Family History Reviewed.: Yes Medication/Allergy Home Medications: Albuterol Sulfate [Ventolin Hfa] 2 puff IH Q4 11/08/16 Hydrochlorothiazide [Hydrodiuril 25 mg Tablet] 25 mg PO DAILY 11/08/16 Levofloxacin [Levaquin 500 mg Tablet] 500 mg PO DAILY 11/08/16 Lisinopril [Prinivil 40 mg Tablet] 40 mg PO BID 11/08/16 Lorazepam [Ativan 0.5 mg Tablet] 0.5 mg PO BID 11/08/16 Metoprolol Tartrate [Lopressor] 50 mg PO BID 11/08/16 Omeprazole 40 mg PO DAILY 11/08/16 Oxycodone HCl [Oxy-Ir 5 mg Tablet] 5 mg PO Q6HP PRN 11/08/16 Oxycodone HCl/Acetaminophen [Percocet 5-325 mg Tablet] 1 tab PO TID 11/08/16 Zolpidem Tartrate [Ambien] 10 mg PO QHS 11/08/16 Allergies/Adverse Reactions: No Known Allergies Allergy (Verified 09/14/16 09:23) Review of Systems Constitutional: ABSENT: chills, fever(s), headache(s), weight gain, weight loss Eyes: ABSENT: visual disturbances Ears: ABSENT: hearing changes Cardiovascular: ABSENT: chest pain, dyspnea on exertion, edema, orthropnea, palpitations Respiratory: ABSENT: cough, hemoptysis Gastrointestinal: ABSENT: abdominal pain, constipation, diarrhea, hematemesis, hematochezia, nausea, vomiting Genitourinary: ABSENT: dysuria, hematuria Musculoskeletal: ABSENT: joint swelling Integumentary: ABSENT: rash, wounds Neurological: ABSENT: abnormal gait, abnormal speech, confusion, dizziness, focal weakness, syncope Psychiatric: ABSENT: anxiety, depression, homidical ideation, suicidal ideation Endocrine: ABSENT: cold intolerance, heat intolerance, polydipsia, polyuria Hematologic/Lymphatic: ABSENT: easy bleeding, easy bruising Physical Exam Vital Signs: Temp Pulse Resp BP Pulse Ox 98.0 F 112 H 16 101/55 L 97 11/09/16 03:58 11/09/16 07:00 11/09/16 03:58 11/09/16 03:58 11/09/16 05:56 Intake & Output 11/08/16 11/09/16 11/10/16 06:59 06:59 06:59 Intake Total 3060 Balance 3060 Weight 59.4 kg General appearance: PRESENT: no acute distress, well-developed, well-nourished Head exam: PRESENT: atraumatic, normocephalic Eye exam: PRESENT: conjunctiva pink, EOMI, PERRLA. ABSENT: scleral icterus Ear exam: PRESENT: normal external ear exam Mouth exam: PRESENT: moist, tongue midline Neck exam: ABSENT: carotid bruit, JVD, lymphadenopathy, thyromegaly Respiratory exam: PRESENT: clear to auscultation yvette. ABSENT: rales, rhonchi, wheezes Cardiovascular exam: PRESENT: RRR. ABSENT: diastolic murmur, rubs, systolic murmur Pulses: PRESENT: normal dorsalis pedis pul Vascular exam: PRESENT: normal capillary refill GI/Abdominal exam: PRESENT: normal bowel sounds, soft. ABSENT: distended, guarding, mass, organolmegaly, rebound, tenderness Rectal exam: PRESENT: deferred Extremities exam: PRESENT: full ROM. ABSENT: calf tenderness, clubbing, pedal edema Neurological exam: PRESENT: alert, awake, oriented to person, oriented to place , oriented to time, oriented to situation, CN II-XII grossly intact. ABSENT: motor sensory deficit Psychiatric exam: PRESENT: appropriate affect, normal mood. ABSENT: homicidal ideation, suicidal ideation Skin exam: PRESENT: dry, intact, warm. ABSENT: cyanosis, rash Results Impressions: Chest/Abdomen CTA 11/08/16 02:27 IMPRESSION: Increasing 11.4 cm cavitating mass of the left upper lobe consistent clinical history of squamous cell lung carcinoma. Assessment & Plan - Diagnosis (1) Malignant neoplasm of upper lobe of left lung Is this a current diagnosis for this admission?: YesPlan: Stage III lung cancer, I reviewed his CT imaging at length, I also discussed with them at length, spent about 70 minutes in discussion, I also reviewed the images myself and discussed his case with Dr. Yi of radiation oncology. There is more cavitation noted, this indicates treatment effect, there is no evidence of progression thus far. In fact probably is treatment effect and improvement of disease. We will plan to continue with concurrent chemoradiation , his next chemotherapy will be next week but we'll see how he feels. We will plan for extra fluids during treatment. His hemoglobin is 8.8, but we will hold on transfusion for now. We would suggest another 24 hours of hydration and probable discharge home tomorrow. However today he could continue radiation. - Time Time Spent: Greater than 70 Minutes Critical Time spent with patient: 35 or more minutes - Inpatient Certification Based on my medical assessment, after consideration of the patient's comorbidities, presenting symptoms, or acuity I expect that the services needed warrant INPATIENT care.: Yes I certify that my determination is in accordance with my understanding of Medicare's requirements for reasonable and necessary INPATIENT services [42 CFR 412.3e].: Yes Medical Necessity: Need For IV Fluids
[2016-11-09] MEDS: METOPROLOL TARTRATE 50 MG TABLET PO SCH ×2 (09:29→22:38)
[2016-11-09] MEDS: LORAZEPAM 0.5 MG TABLET PO SCH ×2 (09:29→17:00)
[2016-11-09] MEDS: LISINOPRIL 10 MG TABLET PO SCH (09:29)
[2016-11-09] MEDS: IPRATROPIUM/ALBUTEROL 0.5-2.5 MG/3 ML AMPUL NEB PRN ×2 (09:58→17:44)
[2016-11-09] MEDS ORDERED: HYDROCHLOROTHIAZIDE 25 MG TABLET PO SCH (10:00)
[2016-11-09] MEDS: ZOLPIDEM TARTRATE 5 MG TABLET PO SCH (22:38)
[2016-11-10] MEDS: ALBUTEROL SULFATE HFA (90 MCG/PUFF) 8 GM MDI (1 MDI/ER DISP) IH SCH ×3 (03:57→11:12)
[2016-11-10] MEDS: NYSTATIN/DEXAMETH/DIPHEN SUSP 120 ML PO SCH ×2 (04:00→11:59)
[2016-11-10] MEDS: IPRATROPIUM/ALBUTEROL 0.5-2.5 MG/3 ML AMPUL NEB PRN ×2 (04:21→09:17)
[2016-11-10] MEDS: OXYCODONE-ACETAMINOPHEN 5-325 MG TABLET PO SCH ×2 (06:02→14:08)
[2016-11-10] MEDS: LANSOPRAZOLE 30 MG TAB.RAP.DR PO SCH (08:30)
[2016-11-10] MEDS: ENOXAPARIN SODIUM INJ 40 MG/0.4 ML DISP.SYRIN SUBCUT SCH (08:30)
[2016-11-10] MEDS: METOPROLOL TARTRATE 50 MG TABLET PO SCH (09:45)
[2016-11-10] MEDS: LORAZEPAM 0.5 MG TABLET PO SCH (09:46)
--- NOTE | 2016-11-10 13:10 | PDOC PROGRESS REPORT ---
Subjective Progress Note for:: 11/10/16 Subjective:: No acute events overnight Physical Exam Vital Signs: Temp Pulse Resp BP Pulse Ox 98.5 F 114 H 18 102/72 99 11/10/16 07:54 11/10/16 09:19 11/10/16 09:19 11/10/16 07:54 11/10/16 09:19 Intake & Output 11/09/16 11/10/16 11/11/16 06:59 06:59 06:59 Intake Total 3060 4200 Output Total 800 Balance 3060 3400 Weight 59.4 kg 61.9 kg General appearance: PRESENT: no acute distress, well-developed, well-nourished Head exam: PRESENT: atraumatic, normocephalic Eye exam: PRESENT: conjunctiva pink, EOMI, PERRLA. ABSENT: scleral icterus Ear exam: PRESENT: normal external ear exam Mouth exam: PRESENT: moist, tongue midline Neck exam: ABSENT: carotid bruit, JVD, lymphadenopathy, thyromegaly Respiratory exam: PRESENT: clear to auscultation yvette. ABSENT: rales, rhonchi, wheezes Cardiovascular exam: PRESENT: RRR. ABSENT: diastolic murmur, rubs, systolic murmur Pulses: PRESENT: normal dorsalis pedis pul Vascular exam: PRESENT: normal capillary refill GI/Abdominal exam: PRESENT: normal bowel sounds, soft. ABSENT: distended, guarding, mass, organolmegaly, rebound, tenderness Rectal exam: PRESENT: deferred Extremities exam: PRESENT: full ROM. ABSENT: calf tenderness, clubbing, pedal edema Neurological exam: PRESENT: alert, awake, oriented to person, oriented to place , oriented to time, oriented to situation, CN II-XII grossly intact. ABSENT: motor sensory deficit Psychiatric exam: PRESENT: appropriate affect, normal mood. ABSENT: homicidal ideation, suicidal ideation Skin exam: PRESENT: dry, intact, warm. ABSENT: cyanosis, rash Results Impressions: Chest/Abdomen CTA 11/08/16 02:27 IMPRESSION: Increasing 11.4 cm cavitating mass of the left upper lobe consistent clinical history of squamous cell lung carcinoma. Assessment & Plan - Diagnosis (1) Malignant neoplasm of upper lobe of left lung Is this a current diagnosis for this admission?: YesPlan: Hopeful discharge home today, continue radiation and chemotherapy as an outpatient, will see patient next week.
--- NOTE | 2016-11-10 13:46 | PDOC PROGRESS REPORT ---
Subjective Progress Note for:: 11/09/16 Subjective:: He was admitted because of dehydration, he was seen by oncology and he had radiation therapy today. He has of sinus tachycardia due to dehydration Physical Exam Vital Signs: Temp Pulse Resp BP Pulse Ox 98.5 F 114 H 18 102/72 99 11/10/16 07:54 11/10/16 09:19 11/10/16 09:19 11/10/16 07:54 11/10/16 09:19 Intake & Output 11/09/16 11/10/16 11/11/16 06:59 06:59 06:59 Intake Total 3060 4200 Output Total 800 Balance 3060 3400 Weight 59.4 kg 61.9 kg General appearance: PRESENT: no acute distress Eye exam: PRESENT: PERRLA Respiratory exam: PRESENT: clear to auscultation yvette Cardiovascular exam: PRESENT: +S1, +S2 GI/Abdominal exam: PRESENT: soft Neurological exam: PRESENT: alert, CN II-XII grossly intact Results Impressions: Chest/Abdomen CTA 11/08/16 02:27 IMPRESSION: Increasing 11.4 cm cavitating mass of the left upper lobe consistent clinical history of squamous cell lung carcinoma. Assessment & Plan - Diagnosis (1) Hypotension Qualifiers: Hypotension type: unspecified hypotension type Qualified Code(s): I95.9 - Hypotension, unspecified Is this a current diagnosis for this admission?: Yes (2) Sinus tachycardia Is this a current diagnosis for this admission?: Yes (3) Malignant neoplasm of upper lobe of left lung Is this a current diagnosis for this admission?: Yes
--- NOTE | 2016-11-10 13:49 | PDOC DISCHARGE SUMMARY ---
General - Admit/Disc Date/PCP Admission Date/Primary Care Provider: 11/08/16 07:51 CHAIM MELVIN MD Discharge Date: 11/10/16 - Discharge Diagnosis (1) Hypotension Is this a current diagnosis for this admission?: Yes (2) Sinus tachycardia Is this a current diagnosis for this admission?: Yes (3) Malignant neoplasm of upper lobe of left lung Is this a current diagnosis for this admission?: Yes - Additional Information Resuscitation Status: Full Code Home Medications: RX: Albuterol Sulfate [Ventolin Hfa] 2 puff IH Q4 11/08/16 RX: Lisinopril [Prinivil 40 mg Tablet] 40 mg PO BID 11/08/16 RX: Lorazepam [Ativan 0.5 mg Tablet] 0.5 mg PO BID 11/08/16 RX: Metoprolol Tartrate [Lopressor] 50 mg PO BID 11/08/16 RX: Omeprazole 40 mg PO DAILY 11/08/16 RX: Oxycodone HCl [Oxy-Ir 5 mg Tablet] 5 mg PO Q6HP PRN 11/08/16 RX: Oxycodone HCl/Acetaminophen [Percocet 5-325 mg Tablet] 1 tab PO TID RX: Zolpidem Tartrate [Ambien] 10 mg PO QHS 11/08/16 History of Present Illness History of Present Illness: RAFAL DAMON JR is a 61 year old male, he has squamous cell lung cancer on active chemotherapy and radiation therapy he came emergency room because of shortness of breath, in the emergency room he was found to have sinus tachycardia, CTA chest was done and it showed increasing 11.4 cm mass in the left upper lobe there was increase cavitation within the mass, he was also found to have a low blood pressure. He stated that he has been receiving radiation therapy on a daily basis, he was supposed to have additional treatment today but clearly is not in optimal clinical state to receive radiation therapy today, the blood pressure is low on he has sinus tachycardia that suggest dehydration, he needs IV fluid therapy Hospital Course Hospital Course: Patient with lung cancer he was admitted because of sinus tachycardia, low blood pressure due to dehydration. He was hydrated with fluids, he was seen by oncology, he had radiation therapy on this admission. He was given IV fluid and there was improvement in the sinus tachycardia and he felt better overall. Physical Exam Vital Signs: Temp Pulse Resp BP Pulse Ox 98.5 F 114 H 18 102/72 99 11/10/16 07:54 11/10/16 09:19 11/10/16 09:19 11/10/16 07:54 11/10/16 09:19 Intake & Output 11/09/16 11/10/16 11/11/16 06:59 06:59 06:59 Intake Total 3060 4200 Output Total 800 Balance 3060 3400 Weight 59.4 kg 61.9 kg General appearance: PRESENT: no acute distress, thin Eye exam: PRESENT: PERRLA Respiratory exam: PRESENT: clear to auscultation yvette Cardiovascular exam: PRESENT: +S1, +S2 GI/Abdominal exam: PRESENT: soft Neurological exam: PRESENT: alert Results Impressions: Chest/Abdomen CTA 11/08/16 02:27 IMPRESSION: Increasing 11.4 cm cavitating mass of the left upper lobe consistent clinical history of squamous cell lung carcinoma.
[2016-11-10 14:34] VITALS: BP 115/65
== END 2016-11-10 15:00 | disposition home or self-care (01) ==
LOC: ER 01:30 → EH 07:41 → UNDOADMIN 07:41 → INTOOBSV 07:51 → EH 07:51 → 4S 10:00
PROVIDERS: ADMIT Internal Medicine; ATTEND Internal Medicine
PROC: 3E033GC Introduction of Other Therapeutic Substance into Peripheral Vein, Percutaneous Approach (ICD-10-PCS; principal; 2016-11-08)
PROC: 3E033GC Introduction of Other Therapeutic Substance into Peripheral Vein, Percutaneous Approach (ICD-10-PCS; 2016-11-08)
DX: I95.9 Hypotension, unspecified (principal); R00.0 Tachycardia, unspecified; C34.12 Malignant neoplasm of upper lobe, left bronchus or lung; E86.0 Dehydration; I10 Essential (primary) hypertension; J44.9 Chronic obstructive pulmonary disease, unspecified; Z87.891 Personal history of nicotine dependence; Z99.81 Dependence on supplemental oxygen
CPT/HCPCS: 93005; 94640 ×5; 99291; 96375; 96365; 36415; 85025; 80048; 84484; 83880; 71275; 93010; G0378 ×4; J3490 ×11; J1200; J2930; J1650 ×3; J2060; J3475; J7030; S0028; J7620 ×2; J1642

== ENCOUNTER → 2016-11-12 | Outpatient (CLI) | payer MEDICAID ==
[2016-11-12 11:12] LABS: ABSOLUTE LYMPHOCYTES (AUTO) 0.6 10^3/uL (0.5-4.7); ABSOLUTE MONOCYTES (AUTO) 0.1 10^3/uL (0.1-1.4); ABSOLUTE NEUT (AUTO) 2.5 10^3/uL (1.7-8.2); BASOPHILS % (AUTO) 0.2 % (0-2); EOSINOPHILS % (AUTO) 0.4 % (0-6); HEMATOCRIT 27.6 % (37.9-51.0); HEMOGLOBIN 8.9 g/dL (13.5-17.0); HGB HCT DIFFERENCE -0.9; LYMPHOCYTES % (AUTO) 18.8 % (13-45); MEAN CORPUSCULAR HEMOGLOBIN 22.4 pg (27.0-33.4); MEAN CORPUSCULAR HGB CONC 32.2 g/dL (32.0-36.0); MEAN CORPUSCULAR VOLUME 70 fl (80-97); MONOCYTES % (AUTO) 4.1 % (3-13); RED BLOOD COUNT 3.97 10^6/uL (4.35-5.55); RED CELL DISTRIBUTION WIDTH 18.8 % (11.5-14.0); SEGMENTED NEUTROPHILS % (AUTO) 76.5 % (42-78); WHITE BLOOD COUNT 3.3 10^3/uL (4.0-10.5)
== END ==
LOC: LAB 10:23
PROVIDERS: ATTEND Radiology Radiation Oncology
DX: C34.12 Malignant neoplasm of upper lobe, left bronchus or lung (principal); C77.1 Secondary and unspecified malignant neoplasm of intrathoracic lymph nodes
CPT/HCPCS: 36415; 85025

== ENCOUNTER 2016-11-14 09:11 | Outpatient (CLI) | payer MEDICAID ==
[2016-11-14 10:22] VITALS: BP 106/66
== END 2016-11-14 13:00 | disposition home or self-care (01) ==
LOC: II 09:11 → 5TH 09:15 → II 13:00
PROVIDERS: ATTEND Internal Medicine
PROC: 3E04305 Introduction of Other Antineoplastic into Central Vein, Percutaneous Approach (ICD-10-PCS; principal; 2016-11-14)
PROC: 3E04305 Introduction of Other Antineoplastic into Central Vein, Percutaneous Approach (ICD-10-PCS; 2016-11-14)
PROC: 3E043GC Introduction of Other Therapeutic Substance into Central Vein, Percutaneous Approach (ICD-10-PCS; 2016-11-14)
PROC: 3E043GC Introduction of Other Therapeutic Substance into Central Vein, Percutaneous Approach (ICD-10-PCS; 2016-11-14)
PROC: 3E043GC Introduction of Other Therapeutic Substance into Central Vein, Percutaneous Approach (ICD-10-PCS; 2016-11-14)
DX: C34.12 Malignant neoplasm of upper lobe, left bronchus or lung (principal); Z51.11 Encounter for antineoplastic chemotherapy
CPT/HCPCS: 96413; 96367; 96375; 96417; J1200; J9045; J2405; J7050; J9267; S0028; J1100; 96415

== ENCOUNTER → 2016-11-19 | Outpatient (CLI) | payer MEDICAID ==
[2016-11-19 10:41] LABS: HEMATOCRIT 23.4 % (37.9-51.0); HGB HCT DIFFERENCE -1.2; MEAN CORPUSCULAR HEMOGLOBIN 22.6 pg (27.0-33.4); MEAN CORPUSCULAR HGB CONC 31.9 g/dL (32.0-36.0); MEAN CORPUSCULAR VOLUME 71 fl (80-97); RED CELL DISTRIBUTION WIDTH 18.7 % (11.5-14.0)
[2016-11-19 11:06] LABS: BASOPHILS % (MANUAL) 0 % (0-2); EOSINOPHILS % (MANUAL) 0 % (0-6); LYMPHOCYTES % (MANUAL) 28 % (13-45); TOTAL CELLS COUNTED 50
[2016-11-19 11:11] LABS: ANISOCYTOSIS 1+; HYPOCHROMASIA 2+; MICROCYTOSIS 2+
[2016-11-19 11:12] LABS: POLYCHROMASIA SLIGHT
[2016-11-19 11:13] LABS: WHITE BLOOD COUNT 1.9 10^3/uL (4.0-10.5)
[2016-11-19 11:16] LABS: HEMOGLOBIN 7.4 g/dL (13.5-17.0)
== END ==
LOC: LAB 10:23
PROVIDERS: ATTEND Radiology Radiation Oncology
DX: C34.12 Malignant neoplasm of upper lobe, left bronchus or lung (principal); C77.1 Secondary and unspecified malignant neoplasm of intrathoracic lymph nodes
CPT/HCPCS: 36415; 85025

== ENCOUNTER 2016-11-21 12:32 | Outpatient (CLI) | payer MEDICAID ==
[2016-11-21 13:56] VITALS: BP 120/73
== END 2016-11-21 16:30 | disposition home or self-care (01) ==
LOC: II 12:32 → 5TH 12:36 → II 16:30
PROVIDERS: ATTEND Internal Medicine
PROC: 3E04305 Introduction of Other Antineoplastic into Central Vein, Percutaneous Approach (ICD-10-PCS; principal; 2016-11-21)
PROC: 3E04305 Introduction of Other Antineoplastic into Central Vein, Percutaneous Approach (ICD-10-PCS; 2016-11-21)
PROC: 3E043GC Introduction of Other Therapeutic Substance into Central Vein, Percutaneous Approach (ICD-10-PCS; 2016-11-21)
PROC: 3E043GC Introduction of Other Therapeutic Substance into Central Vein, Percutaneous Approach (ICD-10-PCS; 2016-11-21)
PROC: 3E043GC Introduction of Other Therapeutic Substance into Central Vein, Percutaneous Approach (ICD-10-PCS; 2016-11-21)
DX: Z51.11 Encounter for antineoplastic chemotherapy (principal); C34.12 Malignant neoplasm of upper lobe, left bronchus or lung
CPT/HCPCS: 96413; 96367; 96375; 96417; J1200; J9045; J2405; J7050; J9267; S0028; J1100; 96415

== ENCOUNTER → 2016-11-26 | Outpatient (CLI) | payer MEDICAID ==
[2016-11-26 10:32] LABS: ABSOLUTE LYMPHOCYTES (AUTO) 0.3 10^3/uL (0.5-4.7); ABSOLUTE MONOCYTES (AUTO) 0.4 10^3/uL (0.1-1.4); ABSOLUTE NEUT (AUTO) 1.5 10^3/uL (1.7-8.2); BASOPHILS % (AUTO) 0.4 % (0-2); EOSINOPHILS % (AUTO) 0.1 % (0-6); HEMATOCRIT 29.1 % (37.9-51.0); HGB HCT DIFFERENCE 0.9; LYMPHOCYTES % (AUTO) 14.9 % (13-45); MEAN CORPUSCULAR HEMOGLOBIN 25.4 pg (27.0-33.4); MEAN CORPUSCULAR HGB CONC 34.5 g/dL (32.0-36.0); MEAN CORPUSCULAR VOLUME 74 fl (80-97); MONOCYTES % (AUTO) 18.2 % (3-13); RED BLOOD COUNT 3.94 10^6/uL (4.35-5.55); SEGMENTED NEUTROPHILS % (AUTO) 66.4 % (42-78); WHITE BLOOD COUNT 2.2 10^3/uL (4.0-10.5)
== END ==
LOC: LAB 10:20
PROVIDERS: ATTEND Radiology Radiation Oncology
DX: C34.12 Malignant neoplasm of upper lobe, left bronchus or lung (principal); C77.1 Secondary and unspecified malignant neoplasm of intrathoracic lymph nodes
CPT/HCPCS: 36415; 85025

== ENCOUNTER 2016-12-09 13:47 | Emergency (ER) | payer MEDICAID ==
--- NOTE | 2016-12-09 14:51 | ER Document Report ---
ED Medical Screen (RME) - General Chief Complaint: Blood Pressure Problem Stated Complaint: BLOOD PRESSURE PROLEM Mode of Arrival: Ambulatory Information source: Patient, Relative TRAVEL OUTSIDE OF THE [place] IN LAST 30 DAYS: No - HPI Onset: Yesterday Onset/Duration: Gradual Quality of pain: Other - SORENESS Associated Symptoms: Chest pain - BEGAN TODAY Exacerbated by: Coughing, Deep breathing Similar symptoms previously: Yes Recently seen / treated by doctor: Yes - CHEMO & RAD. Tx 11/29 & 11/30 - Related Data Allergies/Adverse Reactions: No Known Allergies Allergy (Verified 12/09/16 13:52) Past Medical History - General Information source: Patient - Past Medical History Cardiac Medical History: Reports: Hx Hypertension Denies: Hx Coronary Artery Disease, Hx Heart Attack Pulmonary Medical History: Reports: Hx COPD Denies: Hx Asthma, Hx Bronchitis, Hx Pneumonia Neurological Medical History: Denies: Hx Cerebrovascular Accident, Hx Seizures Renal/ Medical History: Denies: Hx Peritoneal Dialysis Malignancy Medical History: Reports Hx Lung Cancer Musculoskeltal Medical History: Denies Hx Arthritis Past Surgical History: Reports: Other - Port placement, lung biopsy - Immunizations Hx Diphtheria, Pertussis, Tetanus Vaccination: Yes Review of Systems - Review of Systems Constitutional: No symptoms reported EENT: No symptoms reported Cardiovascular: See HPI Respiratory: No symptoms reported Gastrointestinal: No symptoms reported Skin: Rash Physical Exam - Vital signs Vitals: Temp Pulse Resp BP Pulse Ox 97.8 F 118 H 18 104/68 100 12/09/16 13:54 12/09/16 13:54 12/09/16 13:54 12/09/16 13:54 12/09/16 13:54 Interpretation: Tachycardic. No: Tachypneic, Febrile - General General appearance: Appears well, Alert In distress: None - HEENT Head: Normocephalic Eyes: Normal Conjunctiva: Normal Ears: Normal Nasal: Normal Mouth/Lips: Normal Mucous membranes: Dry - MILDLY Neck: Normal - Respiratory Respiratory status: No respiratory distress Chest status: Nontender Breath sounds: Normal - Cardiovascular Rhythm: Regular - Abdominal Inspection: Normal Distension: No distension - Back Back: Normal - Extremities General upper extremity: Normal inspection General lower extremity: Normal inspection - Neurological Neuro grossly intact: Yes Cognition: Normal Orientation: AAOx4 - Psychological Associated symptoms: Normal affect, Normal mood - Skin Skin Temperature: Warm Skin Moisture: Dry Skin Color: Normal Skin Turgor: Elastic Skin irregularity: Erythema - WIDESPREAD Course - Vital Signs Vital signs: Temp Pulse Resp BP Pulse Ox 97.8 F 86 18 117/67 97 12/09/16 18:12 12/09/16 18:12 12/09/16 18:12 12/09/16 18:12 12/09/16 18:12 - Laboratory Result Diagrams: 12/09/16 14:45 12/09/16 14:45 Laboratory results interpreted by me: 12/09/16 12/09/16 14:45 14:45 RBC 3.77 L Hgb 9.9 L Hct 29.9 L MCV 79 L D MCH 26.2 L RDW 30.2 H Seg Neuts % (Manual) 79 H Lymphocytes % (Manual) 3 L Monocytes % (Manual) 17 H Abs Lymphs (Manual) 0.2 L Sodium 135.9 L Total Bilirubin 1.9 H Direct Bilirubin 0.5 H Creatine Kinase 39 L Total Protein 5.6 L Albumin 3.1 L Doctor's Discharge - Discharge Clinical Impression: allergic reaction Condition: Stable Disposition: HOME, SELF-CARE Instructions: Acute Allergic Reaction to Drugs ([facility]) Additional Instructions: Recommendations: Start the Medrol Dosepak tomorrow. Take the Benadryl every 6 hours. Take the Pepcid twice daily as prescribed Return to the emergency room for worsening rash, or any concerns he getting worse. Follow-up with Dr. loza on Saturday: He will have to discuss whether or not to switch chemotherapy agents. Tell the coding validator that he was seen in the emergency room over the weekend for an allergic reaction and that the ER doctor wanted just seen Saturday or Saturday. As we discussed, I did discuss your findings with Dr. Arauz who was welder production line gas this weekend. Prescriptions: Diphenhydramine HCl [Benadryl] 25 mg PO Q6HP PRN #20 capsule PRN Reason: Famotidine [Pepcid 20 mg Tablet] 20 mg PO BID #12 tablet Methylprednisolone [Medrol 4 mg Dosepack 21 Tab/Pack] 4 mg PO ASDIR PRN #21 tab.ds.pk PRN Reason: Referrals: CHAIM MELVIN MD [Primary Care Provider] - Follow up as needed
[2016-12-09 15:00] LABS: HEMATOCRIT 29.9 % (37.9-51.0); HEMOGLOBIN 9.9 g/dL (13.5-17.0); HGB HCT DIFFERENCE -0.2; MEAN CORPUSCULAR HEMOGLOBIN 26.2 pg (27.0-33.4); RED BLOOD COUNT 3.77 10^6/uL (4.35-5.55); RED CELL DISTRIBUTION WIDTH 30.2 % (11.5-14.0); WHITE BLOOD COUNT 4.9 10^3/uL (4.0-10.5)
[2016-12-09 15:15] LABS: ALANINE AMINOTRANSFERASE 30 U/L (21-72); ALBUMIN 3.1 g/dL (3.5-5.0); ALKALINE PHOSPHATASE 102 U/L (38-126); ANION GAP 10 (5-19); ASPARTATE AMINO TRANSFERASE 23 U/L (17-59); BILIRUBIN,DIRECT 0.5 mg/dL (0.0-0.4); BILIRUBIN,TOTAL 1.9 mg/dL (0.2-1.3); BLOOD UREA NITROGEN 17 mg/dL (7-20); CALCIUM 8.7 mg/dL (8.4-10.2); CARBON DIOXIDE 25 mmol/L (22-30); CHLORIDE 101 mmol/L (98-107); CREATINE KINASE 39 U/L (55-170); CREATININE RESULT 0.88 mg/dL (0.52-1.25); GLUCOSE 91 mg/dL (75-110); POTASSIUM 4.5 mmol/L (3.6-5.0); SODIUM 135.9 mmol/L (137-145); TOTAL PROTEIN 5.6 g/dL (6.3-8.2)
[2016-12-09 15:17] LABS: BASOPHILS % (MANUAL) 0 % (0-2); EOSINOPHILS % (MANUAL) 0 % (0-6); LYMPHOCYTES % (MANUAL) 3 % (13-45); TOTAL CELLS COUNTED 100
[2016-12-09 15:19] LABS: ANISOCYTOSIS 3+; HYPOCHROMASIA 2+; POLYCHROMASIA SLIGHT; ROULEAUX SLIGHT
[2016-12-09 15:20] LABS: OVALOCYTES SLIGHT; POIKILOCYTOSIS SLIGHT
[2016-12-09 15:25] LABS: MEAN CORPUSCULAR VOLUME 79 fl (80-97)
[2016-12-09 15:27] LABS: CREATINE KINASE MB 0.53 ng/mL (<4.55)
[2016-12-09 15:32] LABS: TROPONIN I < 0.012 ng/mL
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
[2016-12-09] MEDS ORDERED: DIPHENHYDRAMINE HCL 50 MG/ML VIAL IV ONE (15:51)
[2016-12-09] MEDS ORDERED: METHYLPREDNISOLONE INJ 125 MG/2 ML SDV IV ONE (15:51)
[2016-12-09] MEDS: NORMAL SALINE 1000 ML 1,000 ML IV PRN ×2 (16:22→16:25)
[2016-12-09 18:13] VITALS: BP 117/67
--- NOTE | 2016-12-09 22:55 | EKG REPORT ---
SEVERITY:- OTHERWISE NORMAL ECG - SINUS TACHYCARDIA APC : Confirmed by: New Lora 09-Dec-2016 22:53:45
== END 2016-12-09 20:23 | disposition home or self-care (01) ==
LOC: ER 13:47
DX: R21 Rash and other nonspecific skin eruption (principal); R00.0 Tachycardia, unspecified; T78.40XA Allergy, unspecified, initial encounter; X58.XXXA Exposure to other specified factors, initial encounter; C34.92 Malignant neoplasm of unspecified part of left bronchus or lung; Z79.899 Other long term (current) drug therapy; I10 Essential (primary) hypertension
CPT/HCPCS: 93005; 36591; 99285; 96361; 96374; 96375; 36415; 82553; 82550; 85025; 80053; 84484; 71020; 93010; J1200; J2930; J7030

== ENCOUNTER → 2017-01-02 | Outpatient (CLI) | payer MEDICAID ==
--- NOTE | 2017-01-03 07:13 | XCELERA REPORT ---
[address] [address] Upper Extremity Venous Evaluation Name: RAFAL DAMON JR Age: 62 yrs Gender: Male : 1955 Patient Status: Outpatient Patient Location: Study Date: 01/02/2017 04:52 PM Procedure: Complete bilateral duplex scan of the upper extremity veins was performed, including responses to compression and other maneuvers. Reason For Study: BUE SWELLING, DISCOLORATION Ordering Physician: WING PLUMMER Performed By: Conchis Richards Right Side Venous Evaluation Normal vessel filling wall to wall, compression and augmentation as well as Colour flow down to the forearm veins. Left Sided Venous Evaluation Normal vessel filling wall to wall, compression and augmentation as well as Colour flow down to the forearm veins. Interpretation Summary Normal compression, patency, spontaneous and phasic flow of the bilateral upper extremity veins. : WING PLUMMER > Mj Marquez
== END ==
LOC: SP 16:41
PROVIDERS: ATTEND Radiology Radiation Oncology
DX: M79.632 Pain in left forearm (principal); M79.631 Pain in right forearm; M79.89 Other specified soft tissue disorders
CPT/HCPCS: 93970

== ENCOUNTER → 2017-01-31 | Outpatient (CLI) | payer MEDICAID ==
--- NOTE | 2017-01-31 15:28 | RADIOLOGY REPORT (SQ) ---
EXAM DESCRIPTION: CTA CHEST COMPLETED DATE/TIME: 01/31/2017 3:10 pm REASON FOR STUDY: OTHER PULMONARY EMBOLISM pain on inspiration COMPARISON: CT angio chest 11/08/2016 PET-CT 10/07/2016 TECHNIQUE: CT scan of the chest performed using helical scanning technique with dynamic intravenous contrast injection. Images reviewed with lung, soft tissue and bone windows. Reconstructed coronal and sagittal MPR images reviewed. Additional 3 dimensional post-processing performed to develop Maximal Intensity Projection images (OK P). All images stored on PACS. All CT scanners at this facility use dose modulation, iterative reconstruction, and/or weight based d osing when appropriate to reduce radiation dose to as low as reasonably achievable (ALARA). [facility]: Dose Right [facility]: CareDose [facility]: Dose Right [facility]: Teradose 4D [facility]: [employer] CONTRAST TYPE AND DOSE: contrast/concentration: Isovue 370.00 mg/ml; Total Contrast Delivered: 73.0 ml; Total Saline Delivered: 166.1 ml RENAL FUNCTION: Creatinine 0.8 RADIATION DOSE: Up-to-date CT equipment and radiation dose reduction techniques were employed. CTDIv ol: 8.2 - 11.3 mGy. DLP: 355 mGy-cm. . LIMITATIONS: None. FINDINGS: LUNGS AND PLEURA: The left upper lobe mass seen on prior studies is now a thin walled cavi ty with air-fluid level measuring 10 cm AP x 6.5 cm transverse by 8.5 cm craniocaudad (was 11.5 x 8 x 11 cm on 11/08/2016). Lung parenchyma exhibits diffuse change of obstructive lung disease. No focal acute infiltrates. No pleural effusion. No pneumothorax. AORTA AND GREAT VESSELS: No aneurysm or dissection. HEART: No pericardial effusion. PULMONARY ARTERIES: No emboli visualized in the main pulmonary arteries or the segmental branches. HILAR AND MEDIASTINAL STRUCTURES: No identified masses or abnormal nodes. HARDWARE: None in the chest. UPPER ABDOMEN: Small hiatal hernia. Mild distal esophageal wall thickening. THYROID AND OTHER SOFT TISSUES: No masses. No adenopathy. BONES: No acute or significant finding. 3D MIPS: Confirm above findings. OTHER: No other significant finding. IMPRESSION: No CT angio evidence of acute pulmonary emboli. No acute infiltrates or pleural effusions Further decrease in size of the left upper lobe mass, now a thin walled cavity with air-fluid level. TECHNICAL DOCUMENTATION: JOB ID: [id number] Quality ID # [id number]: Final reports with documentation of one or more dose reduction techniques (e.g., Au tomated exposure control, adjustment of the mA and/or kV according to patient size, use of iterative reconstruction technique) 2010 [employer]- All Rights Reserved
== END ==
LOC: RAD 14:14
PROVIDERS: ATTEND Internal Medicine
DX: C34.12 Malignant neoplasm of upper lobe, left bronchus or lung (principal); I26.99 Other pulmonary embolism without acute cor pulmonale
CPT/HCPCS: 71275

== ENCOUNTER → 2017-02-10 | Outpatient (CLI) | payer MEDICAID ==
--- NOTE | 2017-02-11 09:29 | RADIOLOGY REPORT (SQ) ---
EXAM DESCRIPTION: PET CT SKULL/THIGH COMPLETED DATE/TIME: 02/10/2017 7:06 pm REASON FOR STUDY: LUNG CA C34.12 MALIGNANT NEOPLASM OF UPPER LOBE, LEFT BRONCHUS OR KATY COMPARISON: 10/07/2016 RADIONUCLIDE AND DOSE: 11.0 MCi F18 FDG The route of agent administration: Intravenous FASTING BLOOD SUGAR: 86 mg/dl CONTRAST TYPE AND DOSE: No CT contrast given. TECHNIQUE: Blood glucose level was verified. Above dose of FDG was injected intravenously. 2-D seg mented attenuation correction images were obtained from the base of the skull to the midthighs. Nonc ontrast CT images were obtained for attenuation correction and fusion with emission images. CT image s were performed without oral or intravenous contrast and are not sensitive for parenchymal lesions. A series of overlapping emission PET images were obtained. Images reviewed and manipulated at [facility] [employer] work station by the radiologist. Images stored on PACS. LIMITATIONS: None. FINDINGS: HEAD AND NECK: No areas of abnormal metabolic activity in the soft tissues of the head and neck. CHEST: Previously described left upper lobe mass has been largely replaced by a non- hypermetabolic c avity measuring about 8 cm in maximum diameter. There is a hypermetabolic rind of pleural-based tiss ue anteriorly measuring about 6.6 SUV and about 1 x 5 cm in AP by transverse diameter. ABDOMEN AND PELVIS: No areas of abnormal metabolic activity in the abdomen or pelvis. Expected physi ologic activity is present in the genitourinary system and bowel. PROXIMAL LOWER EXTREMITIES: No areas of abnormal metabolic activity in the soft tissues of the lower extremities. BONES: Hypermetabolic lesion in the left sacrum measuring about 18 SUV. No definite corresponding le otf seen on CT. ADDITIONAL CT FINDINGS: No additional significant findings on the noncontrast CT images. OTHER: No other significant findings. IMPRESSION: 1. Interval marked decrease in size of left upper lobe mass. 2. Occult bone metastasis left sacrum. TECHNICAL DOCUMENTATION: JOB ID: [id number]- All Rights Reserved
== END ==
LOC: RAD 16:01
PROVIDERS: ATTEND Internal Medicine
DX: C34.12 Malignant neoplasm of upper lobe, left bronchus or lung (principal); C79.51 Secondary malignant neoplasm of bone
CPT/HCPCS: 78815; A9552

== ENCOUNTER → 2017-02-20 | Outpatient (CLI) | payer MEDICAID ==
[~2017-02-20] MED LIST changes: +ALBUTEROL SULFATE 0.083% NEB 2.5 MG/3 ML AMPUL NEB ONE; -CARBOPLATIN IV PRN; -DIPHENHYDRAMINE HCL 50 MG/ML VIAL IV PRN; -FAMOTIDINE INJ/PF 20 MG/2 ML SDV IV PRN; -NORMAL SALINE 250 ML IV PRN; -NORMAL SALINE IV PRN; -ONDANSETRON HCL/PF 16 MG, DEXAMETHASONE SOD PHOSPHATE 10 MG in NORMAL SALINE 50 ML IV PRN; -PACLITAXEL SEMI SYNTHETIC IV PRN
--- NOTE | 2017-02-21 12:00 | PULMONARY FUNCTION TEST ---
DATE OF SERVICE: 02/20/2017 THE VITAL CAPACITY IS SLIGHTLY DECREASED. THE EXPIRATORY FLOW RATES ARE SEVERELY DECREASED. THE FEV1/VC IS 36%, PREDICTED: 80% LUNG VOLUMES BY NITROGEN WASH OUT METHOD SHOW: TLC IS 96% OF PREDICTED FRC IS 119% OF PREDICTED RV IS 125% OF PREDICTED THE DLCO IS 8.9, 49% OF PREDICTED. THE RV/TLC RATIO IS 37% PREDICTED 47% AFTER BRONCHODILATOR, EXPIRATORY FLOW RATES SHOW NO SIGNIFICANT CHANGE. IMPRESSION: GOOD PATIENT EFFORT. SEVERE OBSTRUCTIVE DEFECT. LUNG VOLUMES ARE NORMAL. DIFFUSING CAPACITY IS SEVERELY DECREASED. CC: CLAYTON ALTMAN MD > KOKI
== END ==
LOC: RT 07:08
PROVIDERS: ATTEND Thoracic Surgery (Cardiothoracic Vascular Surgery)
DX: R91.8 Other nonspecific abnormal finding of lung field (principal)
CPT/HCPCS: 94060; 94727; 94729

== ENCOUNTER → 2017-06-09 | Outpatient (CLI) | payer MEDICAID ==
--- NOTE | 2017-06-10 09:41 | RADIOLOGY REPORT (SQ) ---
EXAM DESCRIPTION: PET CT SKULL/THIGH COMPLETED DATE/TIME: 06/09/2017 6:40 pm REASON FOR STUDY: LUNG CANCER C34.12 MALIGNANT NEOPLASM OF UPPER LOBE, LEFT BRONCHUS OR KATY COMPARISON: 02/10/2017 RADIONUCLIDE AND DOSE: 10.98 mCi F18 FDG The route of agent administration: Intravenous FASTING BLOOD SUGAR: 97 mg/dl CONTRAST TYPE AND DOSE: No CT contrast given. TECHNIQUE: Blood glucose level was verified. Above dose of FDG was injected intravenously. 2-D seg mented attenuation correction images were obtained from the base of the skull to the midthighs. Nonc ontrast CT images were obtained for attenuation correction and fusion with emission images. CT image s were performed without oral or intravenous contrast and are not sensitive for parenchymal lesions. A series of overlapping emission PET images were obtained. [facility] by the radiologist. Images stored on PACS. LIMITATIONS: None. FINDINGS: HEAD AND NECK: No areas of abnormal metabolic activity in the soft tissues of the head and neck. CHEST: Previously described left upper lobe mass is now completely cavitary and measures about 9 cm i n maximum diameter and 4.5 SUV. There is a new pleural-based nodule in the left upper lung measuring just under 2 cm and about 8.9 SUV. New pleural-based nodule in the lateral segment of the middle lo be measuring about 9 mm and 8.9 SUV. ABDOMEN AND PELVIS: Focal area of increased uptake measuring about 5.5 SUV subdiaphragmatic left lobe of the liver without corresponding morphologic lesion. Progressing lytic lesion in the left sacrum measuring about 13.4 SUV. PROXIMAL LOWER EXTREMITIES: No areas of abnormal metabolic activity in the soft tissues of the lower extremities. BONES: See above. ADDITIONAL CT FINDINGS: No additional significant findings on the noncontrast CT images. OTHER: No other significant findings. IMPRESSION: Interval disease progression with new hypermetabolic lung nodules and suspected small li annabella metastasis. Progression of sacral metastasis. TECHNICAL DOCUMENTATION: JOB ID: [id number]- All Rights Reserved
== END ==
LOC: RAD 15:33
PROVIDERS: ATTEND Internal Medicine
DX: C34.12 Malignant neoplasm of upper lobe, left bronchus or lung (principal)
CPT/HCPCS: 78815; A9552

== ENCOUNTER 2017-07-02 12:02 | Outpatient (CLI) | payer MEDICAID ==
[2017-07-02] MEDS ORDERED: NORMAL SALINE 1000 ML 1,000 ML IV PRN (12:25)
[2017-07-02 12:31] VITALS: BP 106/66
== END 2017-07-02 13:40 | disposition home or self-care (01) ==
LOC: II 12:02 → 5TH 12:05 → II 13:40
PROVIDERS: ATTEND Internal Medicine
PROC: 3E0437Z Introduction of Electrolytic and Water Balance Substance into Central Vein, Percutaneous Approach (ICD-10-PCS; principal; 2017-07-02)
DX: E86.0 Dehydration (principal); C34.12 Malignant neoplasm of upper lobe, left bronchus or lung
CPT/HCPCS: 96360; 96375

== ENCOUNTER 2017-07-12 10:23 | Outpatient (CLI) | payer MEDICAID ==
[~2017-07-12 10:23] MED LIST changes: -ALBUTEROL SULFATE 0.083% NEB 2.5 MG/3 ML AMPUL NEB ONE; +NORMAL SALINE 1000 ML 1,000 ML IV PRN
[2017-07-12 10:51] VITALS: BP 112/67
== END 2017-07-12 11:40 | disposition home or self-care (01) ==
LOC: II 10:23 → 5TH 10:25 → II 11:40
PROVIDERS: ATTEND Internal Medicine
DX: C34.12 Malignant neoplasm of upper lobe, left bronchus or lung (principal); E86.0 Dehydration
CPT/HCPCS: 96360; 96523

== ENCOUNTER 2017-07-19 09:02 | Outpatient (CLI) | payer MEDICAID ==
[2017-07-19 09:43] VITALS: BP 105/71
== END 2017-07-19 10:41 | disposition home or self-care (01) ==
LOC: II 09:02 → 5TH 09:03 → II 10:41
PROVIDERS: ATTEND Internal Medicine
PROC: 3E0437Z Introduction of Electrolytic and Water Balance Substance into Central Vein, Percutaneous Approach (ICD-10-PCS; principal; 2017-07-19)
DX: E86.0 Dehydration (principal); C34.12 Malignant neoplasm of upper lobe, left bronchus or lung
CPT/HCPCS: 96360; 96375

== ENCOUNTER 2017-07-26 09:08 | Outpatient (CLI) | payer MEDICAID ==
[2017-07-26 09:30] VITALS: BP 112/50
== END 2017-07-26 10:29 | disposition home or self-care (01) ==
LOC: II 09:08 → 5TH 09:10 → II 10:29
PROVIDERS: ATTEND Internal Medicine
PROC: 3E0437Z Introduction of Electrolytic and Water Balance Substance into Central Vein, Percutaneous Approach (ICD-10-PCS; principal; 2017-07-26)
DX: E86.0 Dehydration (principal); C34.12 Malignant neoplasm of upper lobe, left bronchus or lung
CPT/HCPCS: 96360

== ENCOUNTER 2017-08-02 08:57 | Outpatient (CLI) | payer MEDICAID ==
[2017-08-02 09:27] VITALS: BP 104/60
== END 2017-08-02 12:00 | disposition home or self-care (01) ==
LOC: II 08:57 → 5TH 08:57 → II 12:00
PROVIDERS: ATTEND Internal Medicine
DX: C34.12 Malignant neoplasm of upper lobe, left bronchus or lung (principal); E86.0 Dehydration
CPT/HCPCS: 96360; 96375

== ENCOUNTER 2017-08-08 09:04 | Outpatient (CLI) | payer MEDICAID ==
[2017-08-08 09:46] VITALS: BP 121/83
== END 2017-08-08 10:36 | disposition home or self-care (01) ==
LOC: II 09:04 → 5TH 09:05 → II 10:36
PROVIDERS: ATTEND Internal Medicine
PROC: 3E0437Z Introduction of Electrolytic and Water Balance Substance into Central Vein, Percutaneous Approach (ICD-10-PCS; principal; 2017-08-08)
DX: E86.0 Dehydration (principal); C34.12 Malignant neoplasm of upper lobe, left bronchus or lung
CPT/HCPCS: 96375; 96360; J1642

== ENCOUNTER 2017-08-23 07:50 | Outpatient (CLI) | payer MEDICAID ==
[2017-08-23 08:35] VITALS: BP 109/64
== END 2017-08-23 09:51 | disposition home or self-care (01) ==
LOC: II 07:50 → 5TH 07:51 → II 09:51
PROVIDERS: ATTEND Internal Medicine
PROC: 3E0437Z Introduction of Electrolytic and Water Balance Substance into Central Vein, Percutaneous Approach (ICD-10-PCS; principal; 2017-08-23)
DX: C34.12 Malignant neoplasm of upper lobe, left bronchus or lung (principal); E86.0 Dehydration
CPT/HCPCS: 96360; 96375

== ENCOUNTER 2017-08-30 11:52 | Outpatient (CLI) | payer MEDICAID ==
[2017-08-30 12:31] VITALS: BP 136/72
== END 2017-08-30 13:12 | disposition home or self-care (01) ==
LOC: II 11:52 → 5TH 11:58 → II 13:12
PROVIDERS: ATTEND Internal Medicine
PROC: 3E0437Z Introduction of Electrolytic and Water Balance Substance into Central Vein, Percutaneous Approach (ICD-10-PCS; principal; 2017-08-30)
DX: E86.0 Dehydration (principal); C34.12 Malignant neoplasm of upper lobe, left bronchus or lung
CPT/HCPCS: 96360

== ENCOUNTER → 2017-09-02 | Outpatient (CLI) | payer MEDICAID ==
--- NOTE | 2017-09-02 11:43 | RADIOLOGY REPORT (SQ) ---
EXAM DESCRIPTION: CT CHEST WITH; CT ABD/PELVIS WITH IV ONLY COMPLETED DATE/TIME: 09/02/2017 8:51 am REASON FOR STUDY: LUNG CA (C34.12) C34.12 MALIGNANT NEOPLASM OF UPPER LOBE, LEFT BRONCHUS OR KATY COMPARISON: PET-CT 06/09/2017. CT chest from January 2017. CONTRAST TYPE AND DOSE: contrast/concentration: Isovue 370.00 mg/ml; Total Contrast Delivered: 50.0 ml; Total Saline Delivered: 65.0 ml RENAL FUNCTION: Creatinine 0.8 TECHNIQUE: CT scan of the chest performed using helical scanning technique with dynamic intravenous contrast injection. Images reviewed with lung, soft tissue and bone windows. Reconstructed coronal a nd sagittal MPR images reviewed. All images stored on PACS. CT scan of the abdomen and pelvis performed with intravenous and without oral contrastusing helical s meghna technique with dynamic intravenous contrast injection. Images reviewed with lung, soft tissu e and bone windows. Reconstructed coronal and sagittal MPR images reviewed. Delayed images for eval uation of the urinary system also acquired and evaluated. All images stored on PACS. All CT scanners at this facility use dose modulation, iterative reconstruction, and/or weight based d osing when appropriate to reduce radiation dose to as low as reasonably achievable (ALARA). [facility]: Dose Right [facility]: CareDose [facility]: Dose Right [facility]: Teradose 4D [facility]: [employer] RADIATION DOSE: CT Rad equipment meets quality standard of care and radiation dose reduction techniq ues were employed. CTDIvol: 4.4 - 4.5 mGy. DLP: 603 mGy-cm. . LIMITATIONS: None. FINDINGS: CHEST: LUNGS AND PLEURA: Stable large cavity in the left upper lobe. Areas of internal peripheral nodularit y look relatively nonprogressive. Probable new cavity in the apex of the left lower lobe, just over 2 cm. Adjacent pleural fluid. Numerous new or increasing lung nodules in the right upper lobe right middle lobe bilateral lower lobes. The largest of these is in the periphery of the right middle lob e and measures up to 2.6 cm maximal dimension (up from just under 1 cm maximal dimension previously). HILAR AND MEDIASTINAL STRUCTURES: No bulky adenopathy or developing mass. HEART AND VASCULAR STRUCTURES: No aneurysm or dissection. No central pulmonary emboli. No pericardi al effusion. HARDWARE: Right port. THYROID AND OTHER SOFT TISSUES: No masses. No adenopathy. BONES: No acute fracture. No destructive lesions. OTHER: No other significant finding. ABDOMEN AND PELVIS: LIVER: Numerous low density liver lesions. Largest is in the left hepatic lobe near the liver dome m easuring up to 3.5 cm transverse dimension. SPLEEN: Normal size. No focal lesions. PANCREAS: No masses. No significant calcifications. No adjacent inflammation or peripancreatic fluid collections. Pancreatic duct not dilated. GALLBLADDER: No identified stones by CT criteria. No inflammatory changes to suggest cholecystitis. ADRENAL GLANDS: No significant masses or asymmetry. RIGHT KIDNEY AND URETER: No solid masses. No significant calcification. No hydronephrosis or hydroure ter. LEFT KIDNEY AND URETER: No solid masses. No significant calcification. No hydronephrosis or hydrouret er. AORTA AND VESSELS: No aneurysm. No dissection. Renal arteries, SMA, celiac without stenosis. RETROPERITONEUM: No retroperitoneal adenopathy, hemorrhage or masses. BOWEL AND PERITONEAL CAVITY: Large amount of stool throughout the colon. No dilated loops to suggest obstruction. No gross ascites or bulky adenopathy. APPENDIX: Not visualized. ABDOMINAL WALL: No masses. No hernias. BONES: Bilateral L5 pars defects. No significant listhesis. No gross developing bone lesions. OTHER: No other significant finding. IMPRESSION: 1. Progressing lung lesions as above. Numerous enlarging and new lesions are present th roughout the lungs. 2. Innumerable liver lesions are now also well demonstrated. NORMAL CT OF THE ABDOMEN AND PELVIS WITH ORAL AND INTRAVENOUS CONTRAST. TECHNICAL DOCUMENTATION: JOB ID: [id number] Quality ID # [id number]: Final reports with documentation of one or more dose reduction techniques (e.g., Au tomated exposure control, adjustment of the mA and/or kV according to patient size, use of iterative reconstruction technique) 2010 [employer]- All Rights Reserved
== END ==
LOC: RAD 07:56
PROVIDERS: ATTEND Internal Medicine
DX: C34.12 Malignant neoplasm of upper lobe, left bronchus or lung (principal)
CPT/HCPCS: 71260; 74177